=== PATIENT | female | born 1945 | race Caucasian/White ===

== ENCOUNTER → 2017-09-21 10:54 | Outpatient (POV) | payer MEDICARE, MEDICAID, SELFPAY | PROVIDERS: Visit Provider Nurse Practitioner Acute Care | DX: Z00.00 Encounter for general adult medical examination without abnormal findings (principal) ==

== ENCOUNTER → 2017-09-23 11:30 | Outpatient (CLI) | payer MEDICARE, MEDICAID, SELFPAY ==
[2017-09-25 20:19] LABS: Occult Blood,Stool Negative (Negative)
== END ==
PROVIDERS: Visit Provider Family Medicine
DX: Z12.11 Encounter for screening for malignant neoplasm of colon (principal)
CPT/HCPCS: 82272; G0328

== ENCOUNTER → 2017-09-24 11:30 | Outpatient (CLI) | payer MEDICARE, MEDICAID, SELFPAY ==
[2017-09-25 20:17] LABS: Occult Blood,Stool Positive (Negative)
== END ==
PROVIDERS: Visit Provider Family Medicine
DX: Z12.11 Encounter for screening for malignant neoplasm of colon (principal)
CPT/HCPCS: 82272; G0328

== ENCOUNTER → 2017-09-25 12:57 | Outpatient (CLI) | payer MEDICARE, MEDICAID, SELFPAY ==
[2017-09-25 20:18] LABS: Occult Blood,Stool Positive (Negative)
== END ==
PROVIDERS: Visit Provider Family Medicine
DX: Z12.11 Encounter for screening for malignant neoplasm of colon (principal)
CPT/HCPCS: 82272; G0328

== ENCOUNTER → 2018-03-22 09:11 | Outpatient (POV) | payer MEDICARE, MEDICAID, SELFPAY ==
[2018-03-22 10:29] LABS: Basophils % 0.6 % (0.1-2.0); Eosinophils # 0.4 K/mm3 (0.0-0.4); Eosinophils % 7.7 % (0.1-12.0); Hematocrit 32.2 % (37.0-47.0); Hemoglobin 10.4 g/dL (12.2-16.2); Lymphocytes # 1.3 K/mm3 (0.7-4.5); Lymphocytes % 25.4 K/mm3 (10-50); Mean Corpuscular HGB Conc 32.1 g/dL (31.8-35.4); Mean Corpuscular Hemoglobin 29.6 pg (27.0-31.2); Mean Corpuscular Volume 92.2 fl (81-99); Mean Platelet Volume 10.5 fl (7.4-10.4); Monocytes # 0.4 K/mm3 (0.1-1.0); Monocytes % 7.2 % (1.7-9.3); Neutrophils # 3.1 K/mm3 (1.8-7.8); Neutrophils % 59.1 % (37.0-80.0); Platelet Count 101 K/mm3 (142-424); Red Blood Count 3.49 M/mm3 (4.20-5.40); Red Cell Distribution Width 14.7 % (11.5-17.5); White Blood Count 5.3 K/mm3 (4.8-10.8)
[2018-03-22 10:34] LABS: Ammonia 59 umol/L (19-54); INR 1.04 (0.9-1.1); Prothrombin Time 10.7 seconds (9.4-11.8)
[2018-03-22 11:58] LABS: Alanine Aminotransferase 39 U/L (12-78); Albumin/Globulin Ratio 0.9 (1.1-1.8); Alkaline Phosphatase 123 U/L (46-116); Anion Gap 8.6 mEq/L (5-15); Aspartate Amino Transferase 45 U/L (15-37); Bilirubin,Total 0.6 mg/dL (0.2-1.0); Blood Urea Nitrogen 19 mg/dL (7-18); Calcium 9.6 mg/dL (8.5-10.1); Carbon Dioxide 30 mmol/L (21.0-32.0); Chloride 109 mmol/L (98-107); Creatinine,Serum 1.02 mg/dL (0.55-1.02); Estimated Glomerular Filt Rate 53 ml/min (>60); GFR (African American) 65 ML/MIN (>60); Globulin 3.4 gm/dl (1.3-3.2); Glucose 199 mg/dL (74-106); Potassium 5.6 mmoL/L (3.5-5.1); Sodium 142 mmol/L (136-145); Total Protein,Serum 6.4 gm/dL (6.4-8.2)
[2018-03-24 12:53] LABS: AFP, Tumor Marker 3.3 ng/mL (0.0-8.3)
== END ==
PROVIDERS: Visit Provider Nurse Practitioner Acute Care
DX: K74.60 Unspecified cirrhosis of liver (principal)
CPT/HCPCS: 36415; 80053; 82105; 82140; 85025; 85610

== ENCOUNTER → 2018-04-12 08:37 | Outpatient (CLI) | payer MEDICARE, MEDICAID, SELFPAY ==
--- NOTE | 2018-04-12 08:41 | US_ITS ---
US abdomen limited History:Follow-up cirrhosis Ordering Physician:Elvia Gallegos Patient Age: 72 years Comparison:06/29/2017 Findings: Pancreas:Unremarkable. No obvious mass or abnormal fluid collection. No ductal dilatation Liver:There is coarse echogenicity of the liver with irregularity of the liver surface consistent with cirrhosis. No focal liver lesion demonstrated. There is appropriate directional blood flow within the portal vein. The portal vein is not enlarged measuring 8 mm. Right Kidney:Unremarkable. Normal size and echogenicity. No hydronephrosis Gallbladder:Surgically absent Impression: The findings are consistent with cirrhosis. There is appropriate direction of blood flow within the portal vein which does not appear enlarged
== END ==
PROVIDERS: PCP Family Medicine; Visit Provider Nurse Practitioner Acute Care
DX: K74.60 Unspecified cirrhosis of liver (principal)
CPT/HCPCS: 76705

== ENCOUNTER → 2018-09-20 10:03 | Outpatient (POV) | payer MEDICARE, MEDICAID, SELFPAY ==
[2018-09-20 11:37] LABS: Basophils % 0.4 % (0.1-2.0); Eosinophils # 0.2 K/mm3 (0.0-0.4); Eosinophils % 3.6 % (0.1-12.0); Hematocrit 30.6 % (37.0-47.0); Hemoglobin 9.8 g/dL (12.2-16.2); Lymphocytes # 1.9 K/mm3 (0.7-4.5); Lymphocytes % 29.1 % (10-50); Mean Corpuscular HGB Conc 31.9 g/dL (31.8-35.4); Mean Corpuscular Hemoglobin 30.1 pg (27.0-31.2); Mean Corpuscular Volume 94.3 fl (81-99); Monocytes # 0.3 K/mm3 (0.1-1.0); Monocytes % 5.2 % (1.7-9.3); Neutrophils # 3.9 K/mm3 (1.8-7.8); Neutrophils % 61.7 % (37.0-80.0); Platelet Count 120 K/mm3 (142-424); Red Blood Count 3.25 M/mm3 (4.20-5.40); Red Cell Distribution Width 14.8 % (11.5-17.5); White Blood Count 6.4 K/mm3 (4.8-10.8)
[2018-09-20 11:44] LABS: Ammonia 90 umol/L (19-54)
[2018-09-20 12:04] LABS: Prothrombin Time 10.3 seconds (9.4-11.8)
[2018-09-20 12:47] LABS: Alanine Aminotransferase 37 U/L (12-78); Albumin/Globulin Ratio 0.9 (1.1-1.8); Alkaline Phosphatase 121 U/L (46-116); Anion Gap 17.9 mEq/L (5-15); Aspartate Amino Transferase 49 U/L (15-37); Bilirubin,Total 0.5 mg/dL (0.2-1.0); Blood Urea Nitrogen 43 mg/dL (7-18); Calcium 10.3 mg/dL (8.5-10.1); Carbon Dioxide 25 mmol/L (21.0-32.0); Chloride 107 mmol/L (98-107); Creatinine,Serum 1.25 mg/dL (0.55-1.02); Estimated Glomerular Filt Rate 42 ml/min (>60); Ferritin 22 ng/mL (8-388); GFR (African American) 51 ML/MIN (>60); Globulin 3.5 gm/dl (1.3-3.2); Glucose 124 mg/dL (74-106); Potassium 5.9 mmoL/L (3.5-5.1); Sodium 144 mmol/L (136-145); Total Protein,Serum 6.5 gm/dL (6.4-8.2)
[2018-09-21 05:12] LABS: Iron 55 ug/dL (27-139); UIBC 322 ug/dL (118-369)
[2018-09-21 09:44] LABS: AFP, Tumor Marker 4.7 ng/mL (0.0-8.3); Iron Saturation 15 % (15-55)
== END ==
PROVIDERS: Visit Provider Nurse Practitioner Acute Care
DX: K74.60 Unspecified cirrhosis of liver (principal)
CPT/HCPCS: 36415; 80053; 82105; 82140; 82728; 83540; 83550; 85025; 85610

== ENCOUNTER 2018-12-31 08:00 | Outpatient (CLI) | payer MEDICARE, MEDICAID, SELFPAY ==
[2018-12-31] VITALS (20 sets, daily range): BP systolic 128–176; BP diastolic 35–72; PULSE 58–73; RESP 18–20; TEMP 36.3–36.8; O2SAT 96–100; BMI 40.8
[2018-12-31 08:51] LABS: Hematocrit 29.8 % (37.0-47.0); Hemoglobin 9.2 g/dL (12.2-16.2)
[2018-12-31 16:54] LABS: Hematocrit 35.6 % (37.0-47.0)
== END 2018-12-31 16:50 | disposition home or self-care (01) ==
LOC: INF 08:10
PROVIDERS: Visit Provider Family Medicine
DX: D64.9 Anemia, unspecified (principal)
CPT/HCPCS: 36430; 85014; 85018; 86850; P9016

== ENCOUNTER → 2020-02-21 15:28 | Outpatient (POV) | payer MEDICARE, MEDICAID, SELFPAY | PROVIDERS: Visit Provider Dermatology | DX: Z00.00 Encounter for general adult medical examination without abnormal findings (principal) ==

== ENCOUNTER → 2020-04-19 13:04 | Outpatient (CLI) | payer MEDICARE, MEDICAID, SELFPAY ==
[2020-04-19 13:36] LABS: Ammonia 78 umol/L (9-30)
[2020-04-19 15:40] LABS: Chloride 106 mmol/L (98-107); Potassium 4.5 mmoL/L (3.5-5.1); Sodium 144 mmol/L (136-145)
[2020-04-19 15:42] LABS: Alanine Aminotransferase 27 U/L (12-78); Alkaline Phosphatase 132 U/L (38-126); Aspartate Amino Transferase 53 U/L (14-36); Bilirubin,Total 0.8 mg/dl (0.2-1.3); Blood Urea Nitrogen 30 mg/dl (7-17); Estimated Glomerular Filt Rate 49 ml/min (>60); GFR (African American) 59 ML/MIN (>60)
[2020-04-19 15:43] LABS: Albumin Level 3.6 g/dl (3.5-5.0); Albumin/Globulin Ratio 1.2 (1.1-1.8); Anion Gap 13.5 mEq/L (5-15); Calcium 9.9 mg/dl (8.4-10.2); Carbon Dioxide 29 mmol/L (22.0-30.0); Chol/HDL Ratio 1.7 (1-3.5); Cholesterol 95 mg/dl (140-200); Globulin 3.1 g/dL (1.3-3.2); Glucose 110 mg/dl (74-100); HDL Cholesterol 56 mg/dl (40-60); Iron 95 ug/dL (37-170); Total Protein,Serum 6.7 g/dl (6.3-8.2); Triglycerides 41 mg/dl (30-150); VLDL Cholesterol 8 mg/dL (0-40)
[2020-04-19 15:59] LABS: Direct LDL Cholesterol < 30.00 mg/dL (100-129)
[2020-04-19 16:03] LABS: T4 (Thyroxine) 9.8 ug/dl (5.53-11.0)
[2020-04-19 16:16] LABS: Thyroid Stimulating Hormone 3.83 uIU/mL (0.465-4.68)
== END ==
PROVIDERS: Visit Provider Family Medicine
DX: K74.60 Unspecified cirrhosis of liver (principal); E61.9 Deficiency of nutrient element, unspecified; E03.9 Hypothyroidism, unspecified; E11.9 Type 2 diabetes mellitus without complications; Z79.84 Long term (current) use of oral hypoglycemic drugs
CPT/HCPCS: 36415; 80053; 80061; 82140; 83540; 84436; 84443

== ENCOUNTER → 2020-06-18 13:33 | Outpatient (CLI) | payer MEDICARE, MEDICAID, SELFPAY ==
--- NOTE | 2020-06-18 13:42 | XR_ITS ---
PROCEDURE: XR CHEST PORTABLE CLINICAL HISTORY: COVID OUTPATIENT Shortness of breath COMPARISON: CR CXR CHEST(2 VIEWS-NOT PORTABLE) from 03/05/2015 CR CXR CHEST(2 VIEWS-NOT PORTABLE) from 03/07/2015 FINDINGS: The cardiomediastinal silhouette and pulmonary vascularity are within normal limits. The lungs are clear without infiltrates, suspicious nodules, or pleural effusions. Postsurgical changes right shoulder IMPRESSION: No acute findings. Dictated by: Roger Waters MD 06/18/2020 14:24 Roger Waters MD in [place] 06/18/2020 14:24
[2020-06-18 16:49] LABS: Basophils % 0.5 % (0.1-2.0); Eosinophils # 0.5 K/mm3 (0.0-0.4); Eosinophils % 6.9 % (0.1-12.0); Hematocrit 34.2 % (37.0-47.0); Hemoglobin 11.5 g/dL (12.2-16.2); Lymphocytes # 1.8 K/mm3 (0.7-4.5); Lymphocytes % 27.7 % (10-50); Mean Corpuscular HGB Conc 33.7 g/dL (31.8-35.4); Mean Corpuscular Hemoglobin 31.6 pg (27.0-31.2); Mean Corpuscular Volume 93.6 fl (81-99); Mean Platelet Volume 11.3 fl (7.4-10.4); Monocytes # 0.5 K/mm3 (0.1-1.0); Monocytes % 8.2 % (1.7-9.3); Neutrophils # 3.7 K/mm3 (1.8-7.8); Neutrophils % 56.7 % (37.0-80.0); Platelet Count 106 K/mm3 (142-424); Red Blood Count 3.65 M/mm3 (4.20-5.40); Red Cell Distribution Width 15.7 % (11.5-17.5); White Blood Count 6.5 K/mm3 (4.8-10.8)
[2020-06-20 13:42] LABS: Covid-19 Nasal PCR Sendout Lex Not Detected
== END ==
PROVIDERS: PCP Family Medicine; Visit Provider Nurse Practitioner
DX: Z03.818 Encounter for observation for suspected exposure to other biological agents ruled out (principal)
CPT/HCPCS: 36415; 71045; 85025; 87275; 87276; U0004

== ENCOUNTER → 2020-08-06 16:03 | Outpatient (CLI) | payer MEDICARE, MEDICAID, SELFPAY ==
[2020-08-08 11:13] LABS: Covid-19 Nasal PCR Sendout P&C Negative
== END ==
PROVIDERS: PCP Nurse Practitioner; Visit Provider Nurse Practitioner
DX: Z20.822 Contact with and (suspected) exposure to COVID-19 (principal)
CPT/HCPCS: U0004

== ENCOUNTER 2020-11-16 16:48 | Inpatient (IN) | payer MEDICARE, MEDICAID, SELFPAY ==
[2020-11-16] VITALS (10 sets, daily range): BP systolic 129–178; BP diastolic 54–110; PULSE 66–117; RESP 12–18; TEMP 35.8–37; O2SAT 97–100; BMI 30.1; BMI 38.5
--- NOTE | 2020-11-16 16:50 | HMH.EDGENADL ---
ED Disposition Clinical Impression: Hepatic encephalopathy Disposition: Admitted as Observation Condition on Discharge: Fair Referrals: Joesph Vila MD [Primary Care Provider] - - Critical Care Critical Care Time: No Attestation: On , the high probability of a clinically significant, sudden or life threatening deterioration of the following system(s) required my full and direct attention, intervention and personal management. The time I documented below is in addition to time spent performing reported procedures but includes the following listed in this critical care notation. Medical Decision Making - Peng Inquiry Pt receiving controlled substance: Yes Peng was queried for this patient: Yes Risks and benefits of using a controlled substance: were not discussed with pt by me Vital Signs: 11/16/20 16:48 11/16/20 17:05 Temperature 98.6 F Temperature Source Oral Pulse Rate 66 Pulse Rate [Right] 76 Respiratory Rate 16 16 Blood Pressure 148/54 H Blood Pressure [Right Arm] 178/69 H Blood Pressure Mean [Right Arm] 105 Blood Pressure Source [Right Arm] Automatic Cuff Blood Pressure Position [Right Arm] Sitting 02 Sat by Pulse Oximetry 99 100 Oxygen Delivery Method Room Air - Lab Data Lab Results 11/16/20 17:15: WBC 4.5 L, RBC 3.49 L, Hgb 10.6 L, Hct 31.7 L, MCV 90.9, MCH 30.4, MCHC 33.4, RDW 15.6, Plt Count 82 L, MPV 10.2, Neut % (Auto) 49.8, Lymph % (Auto) 37.0, [place] % (Auto) 6.3, Eos % (Auto) 6.2, Baso % (Auto) 0.6, Neut # (Auto) 2.2, Lymph # (Auto) 1.7, [place] # (Auto) 0.3, Eos # (Auto) 0.3, Baso # (Auto) 0.0 11/16/20 17:15: Sodium 140, Potassium 4.3, Chloride 108 H, Carbon Dioxide 24, Anion Gap 12.3, BUN 31 H, Creatinine 1.10 H, Estimated Creat Clear 58, Estimated GFR 49 L, Est GFR ( Amer) 59, Glucose 115 H, Calcium 10.0, Total Bilirubin 0.8, AST 54 H, ALT 31, Alkaline Phosphatase 142 H, Total Protein 6.7, Albumin 3.6, Globulin 3.1, Albumin/Globulin Ratio 1.2 11/16/20 17:15: Lactate 3.7 H 11/16/20 17:15: Ammonia 185 H 11/16/20 17:15: Plasma/Serum Alcohol < 10 11/16/20 17:20: Urine Color Yellow, Urine Appearance Clear, Urine pH 5.5, Ur Specific [place] 1.020, Urine Protein Negative, Urine Glucose (UA) Trace, Urine Ketones Negative, Urine Blood Negative, Urine Nitrate Negative, Urine Bilirubin Negative, Urine Urobilinogen 0.2, Ur Leukocyte Esterase Negative, Urine RBC None, Urine WBC None, Ur Squamous Epith Cells None, Urine Bacteria None 11/16/20 17:20: Urine Opiates Screen Negative, Urine Methadone Screen Negative, Ur Barbituates Screen Negative, Ur Phencyclidine Scrn Negative, Ur Amphetamines Screen Negative, U Benzodiazepines Scrn Negative, Urine Cocaine Screen Negative, U Marijuana (THC) Screen Negative 11/16/20 17:42: Specimen Source Left radial, ABG pH 7.43, ABG pCO2 31.7 L, ABG pO2 95.6, ABG HCO3 20.7 L, ABG Total CO2 21.7 L, ABG O2 Saturation 97, ABG Base Excess -3.6 L, Roger Test Acceptable Result diagrams: 11/16/20 17:15 11/16/20 17:15 Orders (Tests/Meds): ED MEDICATIONS Generic Name Dose Route Start Last Admin Trade Name Freq PRN Reason Stop Dose Admin Lactulose 20 gm 11/16/20 21:00 Lactulose 20gm/30ml Udc PO 12/16/20 20:59 QID FELICIANO Sodium Chloride 10 ml 11/16/20 19:13 Sodium Chloride 0.9% 10ml Vial IV 12/16/20 19:12 NEEDED PRN to Dilute Lorazepam inj Discontinued Medications Generic Name Dose Route Start Last Admin Trade Name Freq PRN Reason Stop Dose Admin Haloperidol Lactate 2 mg 11/16/20 17:25 11/16/20 17:31 Haloperidol Lactate 5 Mg/Ml Vial IM 11/16/20 17:26 2 mg ONCE ONE Administration Haloperidol Lactate 3 mg 11/16/20 18:14 11/16/20 18:15 Haloperidol Lactate 5 Mg/Ml Vial IM 11/16/20 18:15 3 mg ONCE ONE Administration Lorazepam 1 mg 11/16/20 19:13 11/16/20 19:14 Lorazepam 2mg/Ml Vial IV 11/16/20 19:14 1 mg ONCE ONE Administration Neomycin/Polymyxin/Bacitracin 1 each 11/16/20 20:28 Neospo
--- NOTE | 2020-11-16 16:56 | CT_ITS ---
PROCEDURE INFORMATION: Exam: CT Head Without Contrast Exam date and time: 11/16/2020 4:56 PM Age: 75 years old Clinical indication: Altered mental status/memory loss; Additional info: AMS TECHNIQUE: Imaging protocol: Computed tomography of the head without contrast. Radiation optimization: All CT scans at this facility use at least one of these dose optimization techniques: automated exposure control; mA and/or kV adjustment per patient size (includes targeted exams where dose is matched to clinical indication); or iterative reconstruction. COMPARISON: No relevant prior studies available. FINDINGS: Brain: Periventricular and subcortical white matter areas of hypoattenuation, likely chronic small vessel ischemic change, demyelination, or gliosis. No mass, hemorrhage, or acute infarction. Cerebral ventricles: No ventriculomegaly. Bones/joints: Normal. Paranasal sinuses: Visualized sinuses are unremarkable. No fluid levels. Mastoid air cells: Normal as visualized. Vasculature: Atherosclerotic vascular disease. Soft tissues: Unremarkable. IMPRESSION: No acute intracranial abnormality.
--- NOTE | 2020-11-16 16:58 | XR_ITS ---
PROCEDURE INFORMATION: Exam: XR Chest Exam date and time: 11/16/2020 4:58 PM Age: 75 years old Clinical indication: Other: AMS TECHNIQUE: Imaging protocol: XR of the chest. Views: 1 view. COMPARISON: CR XR CHEST PORTABLE 06/18/2020 2:25 PM FINDINGS: Tubes, catheters and devices: Changes of prior right proximal humerus fracture with partially threaded cannulated lag screw and washer fixation. Lungs: Normal. Pleural spaces: Unremarkable. No pleural effusion. No pneumothorax. Heart/Mediastinum: Normal. Bones/joints: Multilevel thoracolumbar spine degenerative disc space narrowing and osteophyte formation. Organs: Cholecystectomy clips within the upper abdomen. IMPRESSION: No acute cardiopulmonary abnormality.
--- NOTE | 2020-11-16 17:31 | PC.NURSE ---
son asks for help at this time. Pt trying to get out of bed and advises she wants to be left along. Tried to explain to pateint that we needed to run some tests to figure out what was going on. son tried to explain to her, pt still trying to get up. Notified MD and orders for 2mg of haldol IM given. Medication administered with no issues
[2020-11-16 17:34] LABS: Microscopic,Cath URINE MICROSCOPIC (MICROSCOPIC)
[2020-11-16 17:34] LABS: Basophils % 0.6 % (0.1-2.0); Eosinophils # 0.3 K/mm3 (0.0-0.4); Eosinophils % 6.2 % (0.1-12.0); Hematocrit 31.7 % (37.0-47.0); Hemoglobin 10.6 g/dL (12.2-16.2); Lymphocytes # 1.7 K/mm3 (0.7-4.5); Mean Corpuscular HGB Conc 33.4 g/dL (31.8-35.4); Mean Corpuscular Hemoglobin 30.4 pg (27.0-31.2); Mean Corpuscular Volume 90.9 fl (81-99); Mean Platelet Volume 10.2 fl (7.4-10.4); Monocytes # 0.3 K/mm3 (0.1-1.0); Monocytes % 6.3 % (1.7-9.3); Neutrophils # 2.2 K/mm3 (1.8-7.8); Neutrophils % 49.8 % (37.0-80.0); Platelet Count 82 K/mm3 (142-424); Red Blood Count 3.49 M/mm3 (4.20-5.40); Red Cell Distribution Width 15.6 % (11.5-17.5); White Blood Count 4.5 K/mm3 (4.8-10.8)
[2020-11-16 17:35] LABS: Appearance,Urine/Cath CLEAR (Clear); Bilirubin,Cath Negative (Negative); Blood, Urine/Cath Negative (Negative); Color,Urine/Cath YELLOW (Yellow); Glucose,Urine/Cath (UA) TRACE (Negative); Ketones,Urine/Cath Negative (Negative); Leukocyte Esterase,Cath Negative (Negative); Nitrate,Cath Negative (Negative); PH,Urine/Cath 5.5 (5.0-8.5); Protein,Urine/Cath Negative (Negative); Urobilinogen,Cath 0.2 EU/dl (0.2)
[2020-11-16 17:35] LABS: Ammonia 185 umol/L (9-30)
[2020-11-16 17:37] LABS: Ethyl Alcohol < 10 mg/dl (0-10); Lactic Acid 3.7 mmol/L (0.7-2.1)
[2020-11-16 17:45] LABS: ABG Base Excess -3.6 mmol/L (-2.4-2.3); ABG HCO3 20.7 mmhg (22.0-26.0); ABG Oxygen Saturation 97 % (90-100); ABG PCO2 31.7 mmhg (35.0-45.0); ABG PH 7.43 mmol/L (7.35-7.45); ABG PO2 95.6 mmhg (80-100); ABG TCO2 21.7 mmhg (23-27)
[2020-11-16 17:47] LABS: Amphetamine/Metha Screen,Urine Negative ng/ml (<1000); Barbiturates Screen,Urine Negative ng/ml (<200)
[2020-11-16 17:48] LABS: Benzodiazepines Screen,Urine Negative ng/ml (<200)
[2020-11-16 17:49] LABS: Cannabinoid Screen,Urine Negative ng/ml (<50); Cocaine Screen,Urine Negative ng/ml (<300)
[2020-11-16 17:50] LABS: Methadone Screen,Urine Negative ng/ml (<300)
[2020-11-16 17:51] LABS: Opiate Screen,Urine Negative ng/ml (<300); Phencyclidine Screen,Urine Negative ng/ml (<25)
[2020-11-16 17:52] LABS: Alanine Aminotransferase 31 U/L (12-78); Albumin Level 3.6 g/dl (3.5-5.0); Albumin/Globulin Ratio 1.2 (1.1-1.8); Alkaline Phosphatase 142 U/L (38-126); Anion Gap 12.3 mEq/L (5-15); Aspartate Amino Transferase 54 U/L (14-36); Bilirubin,Total 0.8 mg/dl (0.2-1.3); Blood Urea Nitrogen 31 mg/dl (7-17); Carbon Dioxide 24 mmol/L (22.0-30.0); Chloride 108 mmol/L (98-107); Creatinine Clearance Estimated 58 mL/min (50-200); Estimated Glomerular Filt Rate 49 ml/min (>60); GFR (African American) 59 ML/MIN (>60); Globulin 3.1 g/dL (1.3-3.2); Glucose 115 mg/dl (74-100); Potassium 4.3 mmoL/L (3.5-5.1); Sodium 140 mmol/L (136-145); Total Protein,Serum 6.7 g/dl (6.3-8.2)
--- NOTE | 2020-11-16 17:56 | PC.NURSE ---
pt gone to radiology
[2020-11-16 17:57] LABS: Allen's Test Acceptable; Source Left Radial
--- NOTE | 2020-11-16 18:11 | PC.NURSE ---
pt thrashing about in CT they are unable to finish scan, advised to bring pt back, pt medicated per mar
--- NOTE | 2020-11-16 20:24 | PC.NURSE ---
paged dr gonzales
--- NOTE | 2020-11-16 20:34 | PC.NURSE ---
Notified House of need for bed assignment at this time
[2020-11-16 21:22] LABS: Reflex Lactic Add Lactic Reflex
--- NOTE | 2020-11-16 21:39 | PC.NURSE ---
repeat lactic same as first. no new orders at this time.
[2020-11-16 22:03] LABS: Lactic Acid Follow Up (RFLX 1) 3.7 mmol/L (0.7-2.1)
--- NOTE | 2020-11-16 22:17 | PC.NURSE ---
called to attempt to give report, spoke with missael gerard who stated she didn't have any idea she was getting the patient and she needed at least 5 minutes before she could take report . agreed.
--- NOTE | 2020-11-16 23:00 | PC.NURSE ---
PT ARRIVED TO FLOOR VIA STRETCHER FROM ED W/STAFF AT [id number]
[2020-11-16 23:42] LABS: Reflex Lactic (2 hrs) Add Lactic Reflex
[2020-11-17 00:13] LABS: Lactic Acid Follow up (RFLX 2) 4.5 mmol/L (0.7-2.1)
[2020-11-17 00:18] LABS: POC Glucose,Bedside 125 (70-110)
[2020-11-17 00:28] VITALS: TEMP 35.3
--- NOTE | 2020-11-17 00:30 | PC.NURSE ---
Called Dr. Dumont to discuss patient's condition stating that Lactic Acid was 4.5 up from the ED previous 2 of 3.7. WBC 4.5. Patient has good urine output greater than 700. Patient has maintenance fluids going at 50 mls per hour. Patient is no communicative, daughter at bedside. No new orders given. Will continue to monitor.
[2020-11-17 01:28] VITALS: TEMP 36.7
--- NOTE | 2020-11-17 02:00 | PC.NURSE ---
Rechecked patient's temp 99.6 F Axillary, REmoved Lilian hector. Will continue to monitor.
[2020-11-17 04:00] VITALS: BP 120/56; PULSE 98; RESP 16; TEMP 36.9; O2SAT 97
[2020-11-17 07:23] LABS: Ammonia 115 umol/L (9-30)
[2020-11-17 08:00] VITALS: BP 156/59; PULSE 94; RESP 19; TEMP 36.4; O2SAT 99
[2020-11-17 11:18] LABS: POC Glucose,Bedside 104 (70-110)
--- NOTE | 2020-11-17 11:40 | HMH.HP ---
*Admission Date: 11/16/20 *Chief complaint: Altered mental status *History of present illness: Ms. Pineda is a 75-year-old white female with a history of nonalcoholic cirrhosis, type 2 diabetes mellitus, hypertension, and ASCVD. She was brought to emergency room yesterday because of sudden onset of confusion and agitation. Family reports that she has had some intermittent episodes over the past several weeks but yesterday was the most severe. She was work-up in the emergency room and found to have an elevated ammonia level of 185. Lactate was elevated. No obvious source of infection. White count was normal. Head CT was unremarkable. She has been admitted at this time for further evaluation and treatment. She was restless through the night. She is more calm this morning. Her son is in the room and states that she recognized him and has been more coherent. [facility] History Medical History: Reports:: Atherosclerotic Heart Disease, Diabetes Mellitus Type 2, Hypertension, Lung Disease (ASTHMA) Denies:: Diabetes Mellitus Type 1, Internal Pacemaker, Seizures *Have you ever received a pneumonia vaccine?: Yes *Have you received a flu vaccine this season?: No Other Medical History: Reports: Anemia (Chronic), Liver Disease (Nonalcoholic cirrhosis) Other Surgeries: Yes: Cholecystectomy, Coronary Stent (2000), Hysterectomy-Total, Other (Tonsillectomy, full mouth extraction). No: Pacemaker Fractures: Yes - *Social History Last grade of school completed: High school graduate Smoking Status: Never smoker Alcohol Intake: never *Occupational Status:: retired Housing: house Household Members: children *Travel in the last 8 weeks: None Family Hx:: Cancer, Heart Attack Review of Systems - Review of Systems Review of systems:: unable to obtain Meds Home Medications Medication Instructions Recorded Confirmed Type Aspirin [Aspirin 325mg Tab] 325 mg PO DAILY 09/24/18 11/17/20 History Dulaglutide [Trulicity] 1.5 mg SQ DAILY 09/24/18 11/17/20 History Furosemide [Furosemide 40MG tAB*] 40 mg PO DAILY 09/24/18 11/17/20 History Glimepiride 4 mg PO DAILY 09/24/18 11/17/20 History Insulin Glargine,Hum.rec.anlog 80 mg SQ BID 09/24/18 11/16/20 History [Toujeo Solostar] Metformin HCl 500 mg PO BID 09/24/18 11/16/20 History Methylcellulose (with Sugar) 850 gm PO DAILY 09/24/18 11/17/20 History [Citrucel Powder] Metoprolol Tartrate 50 mg PO DAILY 09/24/18 11/17/20 History Valsartan/Hydrochlorothiazide 1 tab PO DAILY 09/24/18 11/17/20 History [Valsartan-Hctz 80-12.5 mg Tab] polyethylene glycoL 3350 [Miralax 17 gm PO DAILY 09/24/18 11/17/20 History 17gm Packet] Lactulose [Lactulose 20gm/30ml 10 - 20 gm PO BID 11/17/20 11/17/20 History Oral Soln] Spironolactone [Aldactone 25mg 25 mg PO Q48H 11/17/20 11/17/20 History Tab] Tramadol HCl [Tramadol 50mg 50 mg PO TIDP PRN 11/17/20 11/17/20 History Tab] clonazePAM [Clonazepam] 0.5 mg PO TIDP PRN 11/17/20 11/17/20 History Allergies Allergy/AdvReac Type Severity Reaction Status Date / Time amoxicillin [From AUGMENTIN] Allergy Intermediate I-RASH Verified 11/16/20 16:59 clarithromycin [From BIAXIN] Allergy Intermediate NA-NAUSEA/V Verified 11/16/20 16:59 OMITING clavulanic acid Allergy Intermediate I-RASH Verified 11/16/20 16:59 [From AUGMENTIN] simvastatin Allergy Unknown Verified 11/16/20 16:59 Exam Vital signs and Labs for Last 24 Hours: Temp Pulse Resp BP Pulse Ox 97.6 F 94 H 19 156/59 H 99 11/17/20 08:00 11/17/20 08:00 11/17/20 08:00 11/17/20 08:00 11/17/20 08:00 Laboratory Results - last 24 hr 11/16/20 17:15: WBC 4.5 L, RBC 3.49 L, Hgb 10.6 L, Hct 31.7 L, MCV 90.9, MCH 30.4, MCHC 33.4, RDW 15.6, Plt Count 82 L, MPV 10.2, Neut % (Auto) 49.8, Lymph % (Auto) 37.0, [place] % (Auto) 6.3, Eos % (Auto) 6.2, Baso % (Auto) 0.6, Neut # (Auto) 2.2, Lymph # (Auto) 1.7, [place] # (Auto) 0.3, Eos # (Auto) 0.3, Baso # (Auto) 0.0 11/16/20 17:15: Sodium
--- NOTE | 2020-11-17 15:12 | P.CONPHA_ITS ---
[facility] Pharmacy VTE Monitoring - Patient Demographics Admission date: 11/17/20 Report Date: 11/17/20 Time: 15:12 Allergies/Adverse Reactions: Patient Allergies amoxicillin [From AUGMENTIN] Allergy (Intermediate, Verified 11/16/20 16:59) I-RASH clarithromycin [From BIAXIN] Allergy (Intermediate, Verified 11/16/20 16:59) NA-NAUSEA/VOMITING clavulanic acid [From AUGMENTIN] Allergy (Intermediate, Verified 11/16/20 16:59) I-RASH simvastatin Allergy (Unknown, Verified 11/16/20 16:59) Height: 1.52 m Weight: 89.414 kg Patient Problems: Current Active Problems Hepatic encephalopathy (Acute) Non-alcoholic cirrhosis (Acute) Type 2 diabetes mellitus (Acute) Hypertension (Acute) History of ASCVD (Acute) Osteoarthritis (Acute) - VTE Risk Labs: VTE Related Lab Results Hgb 10.6 g/dL (12.2-16.2) L 11/16/20 17:15 Hct 31.7 % (37.0-47.0) L 11/16/20 17:15 Plt Count 82 K/mm3 (142-424) L 11/16/20 17:15 BUN 31 mg/dl (7-17) H 11/16/20 17:15 Creatinine 1.10 mg/dl (0.52-1.04) H 11/16/20 17:15 Estimated Creat Clear 58 mL/min (50-200) 11/16/20 17:15 Was VTE Risk Assessment Performed: Yes VTE Score: 2 VTE Risk Level: Very Low Risk - Prophylaxis Types of VTE Prophylaxis: TEDS Knee High (RAJESH HOSE ORDERED) Location of Applied Device: Refused
[2020-11-17 16:00] VITALS: BP 164/65; PULSE 88; RESP 19; TEMP 36.4; O2SAT 97
[2020-11-17 16:55] LABS: POC Glucose,Bedside 107 (70-110)
--- NOTE | 2020-11-17 17:07 | PC.NURSE ---
Pt has been pleasant and cooperative this shift. Alert to person only. Pt has slept the majority of the shift, but will awaken with stimuli. No complaints of pain. Pt is on room air with sats. >90%. Lungs CTA. No edema noted. Abdomen is large, round, and non-tender. Quarter-sized abrasion noted to the RT abdi. F/C is patent and draining clear, yellow urine at bedside to gravity. Pt ambulates to/from the bathroom with stand-by assistance. 1 large, soft, brown stool today. FSBS results have been 104 and 107, neither of which have required insulin coverage per sliding scale. 20 G peripheral IV in the LT AC is patent and infusing NS @ 50 ML/HR. VSS. Call light within reach. Will continue to monitor.
[2020-11-17 20:00] VITALS: BP 149/51; PULSE 65; RESP 20; TEMP 36.7; O2SAT 99
[2020-11-17 22:23] LABS: POC Glucose,Bedside 253 (70-110)
[2020-11-18 03:48] VITALS: BP 141/48; PULSE 92; RESP 20; TEMP 36.7; O2SAT 97
[2020-11-18 05:00] VITALS: BMI 38.7
--- NOTE | 2020-11-18 05:11 | PC.NURSE ---
pt stated a headache and md was notified and new prn order received. iv patent and infusing per order. delgado draining divina urine with sediment and some hematuria noted. pt has become more awake and sat up eating crackers. vss. call light in reach. family at bedside. will continue to monitor
[2020-11-18 06:29] LABS: POC Glucose,Bedside 377 (70-110)
[2020-11-18 06:32] LABS: Basophils % 0.5 % (0.1-2.0); Eosinophils # 0.2 K/mm3 (0.0-0.4); Hemoglobin 9.8 g/dL (12.2-16.2); Lymphocytes # 1.3 K/mm3 (0.7-4.5); Mean Corpuscular HGB Conc 32.6 g/dL (31.8-35.4); Mean Corpuscular Hemoglobin 30.1 pg (27.0-31.2); Mean Corpuscular Volume 92.4 fl (81-99); Mean Platelet Volume 10.7 fl (7.4-10.4); Monocytes # 0.5 K/mm3 (0.1-1.0); Monocytes % 8.2 % (1.7-9.3); Neutrophils # 3.5 K/mm3 (1.8-7.8); Neutrophils % 64.4 % (37.0-80.0); Platelet Count 93 K/mm3 (142-424); Red Blood Count 3.24 M/mm3 (4.20-5.40); Red Cell Distribution Width 15.9 % (11.5-17.5); White Blood Count 5.4 K/mm3 (4.8-10.8)
[2020-11-18 06:40] LABS: Alanine Aminotransferase 30 U/L (12-78); Albumin Level 3.1 g/dl (3.5-5.0); Alkaline Phosphatase 92 U/L (38-126); Anion Gap 8.5 mEq/L (5-15); Aspartate Amino Transferase 66 U/L (14-36); Bilirubin,Total 1.5 mg/dl (0.2-1.3); Blood Urea Nitrogen 26 mg/dl (7-17); Calcium 9.4 mg/dl (8.4-10.2); Carbon Dioxide 26 mmol/L (22.0-30.0); Chloride 110 mmol/L (98-107); Creatinine Clearance Estimated 63 mL/min (50-200); Estimated Glomerular Filt Rate 49 ml/min (>60); GFR (African American) 59 ML/MIN (>60); Globulin 3.1 g/dL (1.3-3.2); Glucose 364 mg/dl (74-100); Potassium 4.5 mmoL/L (3.5-5.1); Sodium 140 mmol/L (136-145); Total Protein,Serum 6.2 g/dl (6.3-8.2)
[2020-11-18 06:50] LABS: Ammonia 57 umol/L (9-30)
[2020-11-18 07:11] LABS: Thyroid Stimulating Hormone 2.25 uIU/mL (0.465-4.68)
[2020-11-18 07:24] VITALS: PULSE 102; RESP 16; O2SAT 100
[2020-11-18 08:00] VITALS: BP 150/54; PULSE 102; RESP 16; TEMP 36.6; O2SAT 100
--- NOTE | 2020-11-18 08:17 | HMH.ACPN2 ---
Internal Medicine - PN: Subj *Date: 11/18/20 *Time: 08:17 Interval history: Did not rest well last night but she is much more alert and oriented this morning. She is sitting on the side of the bed eating her breakfast. Daughter is at the bedside. She has no memory of the events of yesterday. Bowels are moving. Exam Vital signs and Labs for Last 24 Hours: Temp Pulse Resp BP Pulse Ox 98.1 F 92 H 20 141/48 H 97 11/18/20 03:48 11/18/20 03:48 11/18/20 03:48 11/18/20 03:48 11/18/20 03:48 Laboratory Results - last 24 hr 11/17/20 11:08: POC Glucose 104 11/17/20 16:37: POC Glucose 107 11/17/20 22:01: POC Glucose 253 H 11/18/20 06:12: POC Glucose 377 H* 11/18/20 06:19: WBC 5.4, RBC 3.24 L, Hgb 9.8 L, Hct 30.0 L, MCV 92.4, MCH 30.1, MCHC 32.6, RDW 15.9, Plt Count 93 L, MPV 10.7 H, Neut % (Auto) 64.4, Lymph % (Auto) 24.0, [place] % (Auto) 8.2, Eos % (Auto) 3.0, Baso % (Auto) 0.5, Neut # (Auto) 3.5, Lymph # (Auto) 1.3, [place] # (Auto) 0.5, Eos # (Auto) 0.2, Baso # (Auto) 0.0 11/18/20 06:19: Sodium 140, Potassium 4.5, Chloride 110 H, Carbon Dioxide 26, Anion Gap 8.5, BUN 26 H, Creatinine 1.10 H, Estimated Creat Clear 63, Estimated GFR 49 L, Est GFR ( Amer) 59, Glucose 364 H, Calcium 9.4, Total Bilirubin 1.5 H, AST 66 H, ALT 30, Alkaline Phosphatase 92, Total Protein 6.2 L, Albumin 3.1 L, Globulin 3.1, Albumin/Globulin Ratio 1.0 L, TSH 2.25 11/18/20 06:19: Ammonia 57 H I & O for Last 24 hours: Intake & Output 11/15/20 11/16/20 11/17/20 11/18/20 11:59 11:59 11:59 11:59 Intake Total 312 / 312 895 / 895 Output Total 950 / 950 0 / 0 Balance -638 / -638 895 / 895 Weight 197 lb 2 oz 197 lb 1.986 oz Narrative: Alert and oriented. Color is normal. She appears in no distress. Chest with coarse breath sounds. No rales or wheezes. Heart is regular. Abdomen obese, soft, nondistended and nontender. Lower extremities show no edema. There is a superficial abrasion over the right distal anterior thigh. (Daughter states this occurred while she is being loaded in the ambulance in route to the hospital; she was combative). [place] is draining tea colored urine Assessment and Plan (1) Hepatic encephalopathy Status: Acute Category: Medical Code(s): K72.90 - Hepatic failure, unspecified without coma (2) Non-alcoholic cirrhosis Status: Acute Category: Medical Code(s): K74.60 - Unspecified cirrhosis of liver (3) Type 2 diabetes mellitus Status: Acute Category: Medical Code(s): E11.9 - Type 2 diabetes mellitus without complications (4) Hypertension Status: Acute Category: Medical Code(s): I10 - Essential (primary) hypertension (5) History of ASCVD Status: Acute Category: Medical Code(s): Z86.79 - Personal history of other diseases of the circulatory system (6) Osteoarthritis Status: Acute Category: Medical Code(s): M19.90 - Unspecified osteoarthritis, unspecified site - Assessment and plan all Dx Assessment and Plan for all problems:: Ammonia level has improved and is now down to 57. Bilirubin has increased slightly to 1.5. Renal function is stable. Continue IV fluids and lactulose. Plan for abdominal ultrasound tomorrow and GI consult.
[2020-11-18 11:46] LABS: Microscopic,Cath URINE MICROSCOPIC (MICROSCOPIC); POC Glucose,Bedside 578 (70-110)
[2020-11-18 11:51] LABS: Appearance,Urine/Cath SL CLOUDY (Clear); Bilirubin,Cath Negative (Negative); Blood, Urine/Cath 3+ (Negative); Color,Urine/Cath DK YELLOW (Yellow); Glucose,Urine/Cath (UA) 2+ (Negative); Ketones,Urine/Cath Negative (Negative); Leukocyte Esterase,Cath TRACE (Negative); Nitrate,Cath POSITIVE (Negative); PH,Urine/Cath 5.5 (5.0-8.5); Protein,Urine/Cath 2+ (Negative); Specific Gravity, Urine/Cath 1.025 (1.005-1.030)
[2020-11-18 12:02] LABS: RBC,Urine/Cath 20-50 # /hpf (0-3)
[2020-11-18 12:07] LABS: Glucose,Random 555 mg/dL (74-100)
[2020-11-18 15:56] LABS: POC Glucose,Bedside 467 (70-110)
[2020-11-18 15:57] VITALS: BP 146/62; PULSE 98; RESP 18; TEMP 36.7; O2SAT 100
--- NOTE | 2020-11-18 16:44 | PC.NURSE ---
Pt has been pleasant and cooperative this shift. A&O X4. No complaints of pain or SOA. Pt is on room air with sats. >90%. Lungs CTA. No edema noted. Abdomen is large, round, soft, and non-tender. Quarter-sized abrasion noted to the RT abdi. F/C is patent and draining dark, brown urine at bedside to gravity. Pt ambulates to/from the bathroom and throughout the room with stand-by assistance. Pt has also sat up in the recliner for several hours today. 2 large, loose, brown stools this shift. FSBS result @ 1130 was 578. Stat blood glucose ordered per protocol and result was 555. Received orders per Dr. Dumont (On-Call for Dr. Cali) to give 30 units of Humalog Insulin X1 and 20 units of Lantus Insulin X1. FSBS result @ 1530 was 467. Received orders per Dr. Dumont to give 30 units of Humalog Insulin X1 and 30 units of Lantus Insulin X1. Pt states that she will talk to Dr. Cali in the AM about ordering her home dose of Toujeo insulin and also about removing her delgado catheter. A reminder has been written on the white board per pt request and information will also be passed along in report to the following shift. 20 G peripheral IV in the LT AC is patent and infusing NS @ 50 ML/HR. VSS. Call light within reach. Will continue to monitor.
[2020-11-18 19:50] VITALS: BP 148/61; PULSE 78; RESP 18; TEMP 36.8; O2SAT 97
[2020-11-18 20:45] LABS: POC Glucose,Bedside 488 (70-110)
[2020-11-19 04:00] VITALS: BP 123/47; PULSE 73; RESP 18; TEMP 36.6; O2SAT 98
--- NOTE | 2020-11-19 04:00 | PC.NURSE ---
late entry: pt right abdi has redness, tender to touch, and warm. site was cleaned and new order for ointment was ordered. alert and oriented. iv patent and infusing. vss. delgado patent. call light in reach. will continue to monitor.
[2020-11-19 05:00] VITALS: BMI 38.7
[2020-11-19 06:02] LABS: POC Glucose,Bedside 244 (70-110)
[2020-11-19 06:20] LABS: Basophils % 0.3 % (0.1-2.0); Eosinophils # 0.2 K/mm3 (0.0-0.4); Hematocrit 27.5 % (37.0-47.0); Hemoglobin 9.3 g/dL (12.2-16.2); Lymphocytes # 1.7 K/mm3 (0.7-4.5); Lymphocytes % 27.8 % (10-50); Mean Corpuscular HGB Conc 33.7 g/dL (31.8-35.4); Mean Corpuscular Hemoglobin 30.6 pg (27.0-31.2); Mean Corpuscular Volume 90.9 fl (81-99); Mean Platelet Volume 11.4 fl (7.4-10.4); Monocytes # 0.5 K/mm3 (0.1-1.0); Monocytes % 7.7 % (1.7-9.3); Neutrophils # 3.6 K/mm3 (1.8-7.8); Neutrophils % 60.2 % (37.0-80.0); Platelet Count 82 K/mm3 (142-424); Red Blood Count 3.03 M/mm3 (4.20-5.40); Red Cell Distribution Width 15.8 % (11.5-17.5)
[2020-11-19 06:30] LABS: Ammonia 18 umol/L (9-30)
[2020-11-19 06:34] LABS: Alanine Aminotransferase 27 U/L (12-78); Alkaline Phosphatase 131 U/L (38-126); Anion Gap 9.1 mEq/L (5-15); Aspartate Amino Transferase 55 U/L (14-36); Bilirubin,Total 1.2 mg/dl (0.2-1.3); Blood Urea Nitrogen 23 mg/dl (7-17); Calcium 8.9 mg/dl (8.4-10.2); Carbon Dioxide 24 mmol/L (22.0-30.0); Chloride 110 mmol/L (98-107); Creatinine Clearance Estimated 54 mL/min (50-200); Estimated Glomerular Filt Rate 40 ml/min (>60); GFR (African American) 48 ML/MIN (>60); Globulin 2.9 g/dL (1.3-3.2); Glucose 232 mg/dl (74-100); Potassium 4.1 mmoL/L (3.5-5.1); Sodium 139 mmol/L (136-145); Total Protein,Serum 5.9 g/dl (6.3-8.2)
[2020-11-19 08:00] VITALS: BP 134/45; PULSE 72; RESP 18; TEMP 36.6; O2SAT 97
--- NOTE | 2020-11-19 08:20 | US_ITS ---
PROCEDURE: US ABDOMEN COMPLETE CLINICAL INDICATION: non-alcoholic cirrhosis; hepatic encephalopathy COMPARISON: US [facility] US abdomen limited from 09/27/2018 FINDINGS: PANCREAS: Visualized pancreas is unremarkable. LIVER: Heterogeneous echogenicity of the liver with minor surface irregularity, suggestive of cirrhosis. No intra or extrahepatic biliary dilation. The portal vein is patent. RIGHT KIDNEY: Normal size. No hydronephrosis. Mild cortical thinning is noted. LEFT KIDNEY: Normal size. No hydronephrosis. Mild cortical thinning. GALLBLADDER: Surgically absent AORTA: No evidence of aneurysm. SPLEEN: Unremarkable. Normal size and echogenicity ASCITES: None demonstrated. IMPRESSION: Findings are consistent with cirrhosis of the liver. Hyperechogenicity of the kidneys bilaterally, suggestive of medical renal disease. Dictated by: Nathaly Del Valle 11/19/2020 11:23 Nathaly Del Valle in [place] 11/19/2020 11:23
--- NOTE | 2020-11-19 08:37 | HMH.ACPN2 ---
<Nessa Hernandez - Last Filed: 11/19/20 08:40> Internal Medicine - PN: Subj *Date: 11/19/20 *Time: 08:40 Interval history: Patient states she is doing well this morning. She did not sleep well. Boycxbrq-io-yxc is at bedside. She is n.p.o. for GI consult this morning. She continues with [place] catheter which she would like to have out. She is not been out of bed as yet. She denies chest pain and shortness of breath. Laboratory data this morning show hemoglobin of 9.3 and hematocrit of 27.5. White blood cell count is 6000. Electrolytes show sodium 139 potassium of 4.1. BUN is 23 creatinine of 1.3. Is normal at 18 down from 57 yesterday AST slightly elevated at 55 with a normal ALT of 27. Alkaline phosphatase slightly elevated at 131. Blood culture show no growth at 48 hours. Exam Vital signs and Labs for Last 24 Hours: Temp Pulse Resp BP Pulse Ox 97.9 F 72 18 134/45 L 97 11/19/20 08:00 11/19/20 08:00 11/19/20 08:00 11/19/20 08:00 11/19/20 08:00 Laboratory Results - last 24 hr 11/18/20 11:30: Urine Color Dk yellow, Urine Appearance Sl cloudy, Urine pH 5.5, Ur Specific [place] 1.025, Urine Protein 2+, Urine Glucose (UA) 2+, Urine Ketones Negative, Urine Blood 3+, Urine Nitrate Positive, Urine Bilirubin Negative, Urine Urobilinogen 1.0, Ur Leukocyte Esterase Trace, Urine RBC 20-50, Urine WBC 3-5, Ur Squamous Epith Cells 3-5, Urine Bacteria None 11/18/20 11:30: POC Glucose 578 H* 11/18/20 11:48: Random Glucose 555 H* 11/18/20 15:46: POC Glucose 467 H* 11/18/20 20:34: POC Glucose 488 H* 11/19/20 05:54: POC Glucose 244 H 11/19/20 06:10: WBC 6.0, RBC 3.03 L, Hgb 9.3 L, Hct 27.5 L, MCV 90.9, MCH 30.6, MCHC 33.7, RDW 15.8, Plt Count 82 L, MPV 11.4 H, Neut % (Auto) 60.2, Lymph % (Auto) 27.8, [place] % (Auto) 7.7, Eos % (Auto) 4.0, Baso % (Auto) 0.3, Neut # (Auto) 3.6, Lymph # (Auto) 1.7, [place] # (Auto) 0.5, Eos # (Auto) 0.2, Baso # (Auto) 0.0 11/19/20 06:10: Sodium 139, Potassium 4.1, Chloride 110 H, Carbon Dioxide 24, Anion Gap 9.1, BUN 23 H, Creatinine 1.30 H, Estimated Creat Clear 54, Estimated GFR 40 L, Est GFR ( Amer) 48 L, Glucose 232 H D, Calcium 8.9, Total Bilirubin 1.2, AST 55 H, ALT 27, Alkaline Phosphatase 131 H, Total Protein 5.9 L, Albumin 3.0 L, Globulin 2.9, Albumin/Globulin Ratio 1.0 L 11/19/20 06:10: Ammonia 18 I & O for Last 24 hours: Intake & Output 11/16/20 11/17/20 11/18/20 11/19/20 11:59 11:59 11:59 11:59 Intake Total 312 / 312 1255 / 1255 2419 / 2419 Output Total 950 / 950 0 / 0 2577 / 2577 Balance -638 / -638 1255 / 1255 -158 / -158 Weight 197 lb 2 oz 197 lb 1.986 oz 197 lb 1 oz Microbiology Reports for the Last 24 Hours: Microbiology 11/16/20 17:15 Blood Blood Culture - Preliminary NO GROWTH AFTER 48 HOURS 11/16/20 17:15 Blood Blood Culture - Preliminary NO GROWTH AFTER 48 HOURS - Constitutional no acute distress Comments: Sitting up in the bed talking with her jsrknamy-oi-bee. Appears comfortable. - *Routine Respiratory Exam Present: CTA bilaterally (Anteriorly and posteriorly) - *Routine Cardiovascular Exam Present: RRR - *Routine Abdominal Exam Present: soft, normoactive bowel sounds. Absent: tenderness - *Routine Extremities Exam Absent: edema, calf tenderness - *Routine Skin Exam Present: wounds (1 cm right anterior abdi with surrounding erythema.) - *Routine Neurological Exam Present: alert, oriented X3 (Called me by name) Assessment and Plan (1) Hepatic encephalopathy Status: Acute Category: Medical Code(s): K72.90 - Hepatic failure, unspecified without coma (2) Non-alcoholic cirrhosis Status: Acute Category: Medical Code(s): K74.60 - Unspecified cirrhosis of liver (3) Type 2 diabetes mellitus Status: Acute Category: Medical Code(s): E11.9 - Type 2 diabetes mellitus without complications (4) Hypertension Status: Acute Category: Medical Code(s): I1
--- NOTE | 2020-11-19 11:08 | HMH.CONS ---
*Admission Date: 11/17/20 *Reason for consult:: cirrhosis/hepatic encephalopathy *History of present illness: This is a 75-year-old female who is known to our office with a history of Barron cirrhosis. She was last seen in 2019 to monitor her cirrhosis and at the time was on lactulose once a day and Lasix. She had undergone EGD with Dr. Chase 09/2018 who found esophageal varices and evidence of portal hypertension. She has been lost to follow-up since then. She reports that she her PCP had increased her lactulose to twice a day at that point. She recently came to the ER with acute confusion. She reports that she has had several episodes of acute confusion over the past 6 months. She always felt that this was blood glucose related as she is a diabetic. Upon arrival to the ER, her ammonia level was 185. Her H&H has been low as well at 9.3/27.5 this morning. She also has thrombocytopenia at 82 this morning. Back in 2019 at her last office visit her meld score was equal to 9. The patient reports that she usually takes her daily lactulose but sometimes forgets her second dose and sometimes she is not sure if she takes either of them. She denies any current confusion but she does note that at 1 point she got lost in her own bedroom. She reports that she sometimes has loose stools with the lactulose and sometimes she has some constipation. She denies any dark tarry stools, alcohol use or any NSAID use. She denies any nausea, vomiting, fever, abdominal pain, melena or hematochezia. She denies any jaundice or yellowing of the skin. Ultrasound today shows only cirrhosis. [facility] History Medical History: Reports:: Atherosclerotic Heart Disease, Diabetes Mellitus Type 2, Hypertension, Lung Disease (ASTHMA) Denies:: Diabetes Mellitus Type 1, Internal Pacemaker, Seizures *Have you ever received a pneumonia vaccine?: Yes *Have you received a flu vaccine this season?: No Other Medical History: Reports: Anemia (Chronic), Liver Disease (Nonalcoholic cirrhosis) Other Surgeries: Yes: Cholecystectomy, Coronary Stent (2000), Hysterectomy-Total, Other (Tonsillectomy, full mouth extraction). No: Pacemaker Fractures: Yes - *Social History Last grade of school completed: High school graduate Smoking Status: Never smoker Alcohol Intake: never *Occupational Status:: retired Housing: house Household Members: children *Travel in the last 8 weeks: None Family Hx:: Cancer, Heart Attack Review of Systems - Constitutional Denies anorexia, Denies body ache(s), Denies fatigue, Denies fever(s) - Eyes Denies blurry vision, Denies discharge - ENT Denies abnormal hearing, Denies dry mouth, Denies difficulty swallowing, Denies pain with swallowing - *Cardiovascular Reports leg swelling, Denies chest pain at rest, Denies shortness of breath - *Respiratory Denies chest congestion, Denies cough, Denies shortness of breath, Denies wheezing - *Gastrointestinal Denies abdominal pain, Denies bloating, Denies change in bowel habits, Denies difficulty swallowing, Denies nausea, Denies vomiting - *Musculoskeletal Denies joint pain, Denies muscle weakness - Integumentary/Breasts Reports lesions, Denies dry skin, Denies yellowing of the skin, Denies itching, Denies rash - *Neurologic Reports behavioral changes, Reports confusion, Reports memory loss, Denies unsteadiness, Denies dizziness, Denies numbness, Denies tingling - Psychiatric Denies anxiety, Denies depression - Endocrine Denies cold intolerance, Denies excessive sweating Meds Home Medications Medication Instructions Recorded Confirmed Type Aspirin [Aspirin 325mg Tab] 325 mg PO DAILY 09/24/18 11/17/20 History Dulaglutide [Trulicity] 1.5 mg SQ WEEKLY 09/24/18 11/18/20 History Furosemide [Furosemide 40MG tAB*] 40 mg PO DAILYP PRN 09/24/18 11/17/20 History Glimepiride 4 mg PO DAILY 09/24/18 11/17/20 History Insulin Glargine,Hum.rec.anlog 65 units SQ BID 09/24/18 11/18/20 History [Steven Leung]
[2020-11-19 12:11] LABS: INR 1.06 (0.9-1.1); Prothrombin Time 12.4 seconds (10.1-12.5)
--- NOTE | 2020-11-19 12:44 | PC.NURSE ---
PT IS RESTING IN BED. NO COMPLAINTS OF DISCOMFORT. PT WAS VERY HUNGRY THIS MORNING WHILE WAITING TO GET HER ULTRASOUND. PT IS EATING AND DRINKING WELL. ALERT AND ORIENTED X4. PT IS GETTING UP TO THE BSC WITH 1 ASSIST. FAMILY AT BEDSIDE. PT IS EATING AND DRINKING WELL. LUNG SOUNDS DIMINISHED. ABDOMEN SOFT/LARGE WITH ACTIVE BOWEL SOUNDS. STOOL WAS COLLECTED AND SENT TO THE LAB. TELFA/TEGADERM DRESSING WAS APPLIED TO [facility] ON THE RLE. VSS. WILL CONTINUE TO MONITOR.
[2020-11-19 13:19] LABS: Occult Blood,Stool Positive (Negative)
[2020-11-19 13:50] LABS: POC Glucose,Bedside 260 (70-110)
[2020-11-19 15:11] VITALS: BMI 38.5
[2020-11-19 15:13] VITALS: BP 127/48; PULSE 70; RESP 16; TEMP 36.9; O2SAT 96
[2020-11-19 17:58] LABS: Glucose,Random 541 mg/dL (74-100)
[2020-11-19 18:24] LABS: POC Glucose,Bedside 516 (70-110)
[2020-11-19 20:00] VITALS: BP 166/70; PULSE 61; RESP 18; TEMP 36.6; O2SAT 100
[2020-11-19 21:59] LABS: Glucose,Random 504 mg/dL (74-100)
[2020-11-20 01:22] LABS: POC Glucose,Bedside 508 (70-110)
[2020-11-20 03:56] VITALS: BP 134/60; PULSE 80; RESP 20; TEMP 37.1; O2SAT 97
[2020-11-20 05:00] VITALS: BMI 39.2
--- NOTE | 2020-11-20 05:32 | PC.NURSE ---
Patient alert and oriented X 4. Patient NH3 18, patient remains on Lactulose. PAtient BG elevated to 508, called MD, ordered at STAT Glucose, administered 20 units S/S, d/c Lantus 30 units and new order per MD 40 units SQ ACHS. Will continue to monitor for any acute changes.
[2020-11-20 06:20] LABS: POC Glucose,Bedside 187 (70-110)
[2020-11-20 07:27] VITALS: BP 117/47; PULSE 76; RESP 19; TEMP 37.1; O2SAT 98
--- NOTE | 2020-11-20 08:15 | HMH.ACPN2 ---
<Nessa Hernandez - Last Filed: 11/20/20 08:15> Internal Medicine - PN: Subj *Date: 11/20/20 *Time: 08:15 Interval history: Did have a really good night's sleep. She denies pain and shortness of breath. She set up in a chair yesterday. She is eating without problems. Bowels are moving and she is voiding well without her catheter. She was seen by gastroenterology yesterday with recommendations to increase lactulose to 10 mL 3 times daily. Plan is for her to follow-up at least every 6 months. Also felt that she possibly would need EGD to rule out esophageal varices as a source of her anemia. Last EGD was noted to be 09/2018. Blood sugars yesterday noted to be 516, 541, 508, 504, and 187 this morning. She remains on Lantus 40 units daily which was increased yesterday along with her sliding scale. Abdominal ultrasound 11/19/2020 with the following results: IMPRESSION: Findings are consistent with cirrhosis of the liver. Hyperechogenicity of the kidneys bilaterally, suggestive of medical renal disease. Exam Vital signs and Labs for Last 24 Hours: Temp Pulse Resp BP Pulse Ox 98.7 F 76 19 117/47 L 98 11/20/20 07:27 11/20/20 07:27 11/20/20 07:27 11/20/20 07:27 11/20/20 07:27 Laboratory Results - last 24 hr 11/19/20 11:09: POC Glucose 260 H 11/19/20 11:36: PT 12.4, INR 1.06 11/19/20 12:10: Stool Occult Blood Positive A 11/19/20 17:10: POC Glucose 516 H* 11/19/20 17:28: Random Glucose 541 H* 11/19/20 21:05: POC Glucose 508 H* 11/19/20 21:25: Random Glucose 504 H* 11/20/20 06:10: POC Glucose 187 H I & O for Last 24 hours: Intake & Output 11/17/20 11/18/20 11/19/20 11/20/20 11:59 11:59 11:59 11:59 Intake Total 312 / 312 1255 / 1255 2419 / 2419 1867 / 1867 Output Total 950 / 950 0 / 0 2577 / 2577 350 / 350 Balance -638 / -638 1255 / 1255 -158 / -158 1517 / 1517 Weight 197 lb 2 oz 197 lb 1.986 oz 197 lb 1 oz 200 lb - Constitutional no acute distress Comments: Awakened easily from sound sleep for exam. - *Routine Respiratory Exam Present: CTA bilaterally (Anteriorly and posteriorly) - *Routine Cardiovascular Exam Present: RRR - *Routine Abdominal Exam Present: soft, normoactive bowel sounds. Absent: tenderness - *Routine Extremities Exam Absent: edema, calf tenderness - *Routine Neurological Exam Present: alert, oriented X3 Assessment and Plan (1) Hepatic encephalopathy Status: Acute Category: Medical Code(s): K72.90 - Hepatic failure, unspecified without coma (2) Non-alcoholic cirrhosis Status: Acute Category: Medical Code(s): K74.60 - Unspecified cirrhosis of liver (3) Type 2 diabetes mellitus Status: Acute Category: Medical Code(s): E11.9 - Type 2 diabetes mellitus without complications (4) Hypertension Status: Acute Category: Medical Code(s): I10 - Essential (primary) hypertension (5) History of ASCVD Status: Acute Category: Medical Code(s): Z86.79 - Personal history of other diseases of the circulatory system (6) Osteoarthritis Status: Acute Category: Medical Code(s): M19.90 - Unspecified osteoarthritis, unspecified site (7) Wound of right lower extremity Status: Acute Category: Medical Code(s): S81.801A - Unspecified open wound, right lower leg, initial encounter - Assessment and plan all Dx Assessment and Plan for all problems:: Continue with current care. Lantus has been increased. Possibly home today. <Earl Cali - Last Filed: 11/20/20 21:15> Internal Medicine - PN: Subj *Date: 11/20/20 *Time: 21:14 Exam Vital signs and Labs for Last 24 Hours: Temp Pulse Resp BP Pulse Ox 98.7 F 76 19 117/47 L 98 11/20/20 07:27 11/20/20 07:27 11/20/20 07:27 11/20/20 07:27 11/20/20 07:27 Laboratory Results - last 24 hr 11/19/20 21:05: POC Glucose 508 H* 11/19/20 21:25: Random Glucose 504 H* 11/20/20 06:10: POC Glucose 187 H I & O for Last 24 hours: Intake & Output 05/0
--- NOTE | 2020-11-23 13:04 | HMH.DCSUM ---
General - General Admission date:: 11/16/20 <VirajEarl marquez - 12/29/20 14:23> 11/16/20 <Aimee Soriano - 11/23/20 13:14> Discharge date: 11/20/20 <Aimee oSriano - 11/23/20 13:14> HPI HPI: Ms. Pineda is a 75-year-old white female with a history of nonalcoholic cirrhosis, type 2 diabetes mellitus, hypertension, and ASCVD. She was brought to emergency room yesterday because of sudden onset of confusion and agitation. Family reports that she has had some intermittent episodes over the past several weeks but yesterday was the most severe. She was worked-up in the emergency room and found to have an elevated ammonia level of 185. Lactate was elevated. No obvious source of infection. White count was normal. Head CT was unremarkable. She has been admitted at this time for further evaluation and treatment. She was restless through the night. She is more calm this morning. Her son is in the room and states that she recognized him and has been more coherent. <Aimee Soriano - 11/23/20 13:14> Hospital Course Hospital Course: The patient's mental status was altered due to hepatic encephalopathy. Her son who was present with her was not sure she had been taking her lactulose as prescribed and did not recall her last appointment with Dr. Chase. She was continued on IV fluid hydration and p.o. lactulose. She was placed on sliding scale coverage for blood sugar. There was no obvious source of infection as her white count was normal, chest x-ray was clear, and urine was unremarkable. An abdominal ultrasound was ordered and GI was consulted. Her abdominal ultrasound showed findings consistent with cirrhosis of the liver. There was hyperechogenicity of the kidneys bilaterally suggestive of medical renal disease. The patient did become much more alert and oriented. Her ammonia level improved and her bilirubin decreased as well. Her renal functions were stable. She did have a wound of the right lower extremity and wound care was provided. Her ammonia level normalized over the course of her stay. GI saw the patient and recommended she increase the lactulose to 10 mL 3 times a day. They wanted to see her in the specialty clinic after discharge and plan to follow her every 6 months. They encouraged the patient to take her medication routinely. They also recommended Hemoccult testing due to her anemia and felt she may need an EGD as an outpatient. By 11/20/2020, the patient had finally slept and was feeling much better. She was stable to be discharged home and will follow with both Dr. Cali and GI. <Aimee Soriano - 11/23/20 13:14> Objective Vital signs: Temp Pulse Resp BP Pulse Ox 98.7 F 76 19 117/47 L 98 11/20/20 07:27 11/20/20 07:27 11/20/20 07:27 11/20/20 07:27 11/20/20 07:27 <Earl Cali - 12/29/20 14:23> Temp Pulse Resp BP Pulse Ox 98.7 F 76 19 117/47 L 98 11/20/20 07:27 11/20/20 07:27 11/20/20 07:27 11/20/20 07:27 11/20/20 07:27 <Aimee Soriano - 11/23/20 13:14> Narrative: - Constitutional no acute distress Comments: Awakened easily from sound sleep for exam. - *Routine Respiratory Exam Present: CTA bilaterally (Anteriorly and posteriorly) - *Routine Cardiovascular Exam Present: RRR - *Routine Abdominal Exam Present: soft, normoactive bowel sounds. Absent: tenderness - *Routine Extremities Exam Absent: edema, calf tenderness - *Routine Neurological Exam Present: alert, oriented X3 <Aimee Soriano - 11/23/20 13:14> DS: Diagnosis - Discharge Diagnosis (1) Hepatic encephalopathy Status: Acute (2) Non-alcoholic cirrhosis Status: Acute (3) Type 2 diabetes mellitus Status: Acute (4) Hypertension Status: Acute (5) History of ASCVD Status: Acute (6) Osteoarthritis Status: Acute (7) Wound of right lower extremity Status: Acute <Aimee Soriano - 11/23/20 13:04> (1) Hepatic encephalopat
== END 2020-11-20 10:54 | disposition home or self-care (01) | DRG 442 ==
LOC: ER 20:34 → 2ND 20:45
PROVIDERS: Family Medicine; Nurse Practitioner Family; Admitting Provider Family Medicine; Emergency Provider Emergency Medicine; PCP Family Medicine; Visit Provider Family Medicine
DX: K72.00 Acute and subacute hepatic failure without coma (principal); K76.6 Portal hypertension; K74.60 Unspecified cirrhosis of liver; E11.9 Type 2 diabetes mellitus without complications; I25.10 Atherosclerotic heart disease of native coronary artery without angina pectoris; Z95.5 Presence of coronary angioplasty implant and graft; X58.XXXA Exposure to other specified factors, initial encounter; Z20.822 Contact with and (suspected) exposure to COVID-19; Z88.1 Allergy status to other antibiotic agents; Z88.0 Allergy status to penicillin; Z88.8 Allergy status to other drugs, medicaments and biological substances; J45.909 Unspecified asthma, uncomplicated; Z79.4 Long term (current) use of insulin; M19.90 Unspecified osteoarthritis, unspecified site; D69.6 Thrombocytopenia, unspecified; D63.8 Anemia in other chronic diseases classified elsewhere; K59.00 Constipation, unspecified; S80.921A Unspecified superficial injury of right lower leg, initial encounter
CPT/HCPCS: 36415; 70450; 71045; 76700; 80053; 80305; 81001; 82140; 82272; 82803; 82947; 82962; 83605; 84443; 85025; 85610; 87040; 99284; G0328; U0003

== ENCOUNTER → 2020-12-03 13:41 | Outpatient (POV) | payer MEDICARE, MEDICAID, SELFPAY | PROVIDERS: Visit Provider Nurse Practitioner Family | DX: Z00.00 Encounter for general adult medical examination without abnormal findings (principal) ==

== ENCOUNTER 2021-01-03 08:44 | Emergency (ER) | payer MEDICARE, MEDICAID, SELFPAY ==
[2021-01-03] VITALS (25 sets, daily range): BP systolic 121–169; BP diastolic 50–71; PULSE 77–96; RESP 0–20; TEMP 35.8–36.6; O2SAT 99–100; BMI 73.3; BMI 33.3
--- NOTE | 2021-01-03 08:46 | ECG_ITS ---
APPROVED REPORT Exam: Resting ECG HR:73 bpm ECG Measurements Heart Rate 73 AXES [place] 182 P 64 QRSd 150 QRS 49 QT 468 T 40 QTc 515 Conclusion Normal sinus rhythm Right bundle branch block Abnormal ECG Electronically signed by : Dmitriy Damian, 01/03/2021 18:03:00
--- NOTE | 2021-01-03 08:51 | XR_ITS ---
PROCEDURE: XR CHEST PORTABLE CLINICAL HISTORY: unresponsive COMPARISON: CR CXR CHEST(2 VIEWS-NOT PORTABLE) from 03/07/2015 CR XR CHEST PORTABLE from 06/18/2020 CR XR CHEST PORTABLE from 11/16/2020 FINDINGS: There is an endotracheal tube present. The tip is low in the region of the ostium of right mainstem bronchus. The tube should be withdrawn approximately 3-4 cm. There is a nasogastric tube present. The tip is in the region of the body of the stomach. Lungs are clear. Unremarkable cardiovascular structures. No acute bony abnormalities. IMPRESSION: Low position of the endotracheal tube. Good position of the nasogastric tube. Emergency room was contacted regarding the endotracheal tube position 01/03/2021 at 9:14 a.m. Dictated by: Roger Waters MD 01/03/2021 09:15 Roger Waters MD in [facility] 01/03/2021 09:15
--- NOTE | 2021-01-03 08:56 | PC.NURSE ---
OG tube placed at 68 at the lip. Bowel sounds auscultated after placement. Placement will verified by xray
--- NOTE | 2021-01-03 08:58 | HMH.EDGENADL ---
ED Disposition Clinical Impression: Hepatic coma/encephalopathy, Acute kidney injury, Hepatorenal syndrome Disposition: Admitted As Inpatient Condition on Discharge: Critical Instructions: DI for Altered Mental Status Referrals: Earl Cali MD [Primary Care Provider] - Forms: Transfer Record - ED - Critical Care Critical Care Time: Yes Attestation: On , the high probability of a clinically significant, sudden or life threatening deterioration of the following system(s) required my full and direct attention, intervention and personal management. The time I documented below is in addition to time spent performing reported procedures but includes the following listed in this critical care notation. Total Critical Care Time: 45 Vital system(s) involved:: Central Nervous System My critical care processes included: Assessment & monitoring of V/S, Initial and Re-exams, Data Review/Interpretation, Coordinating Care, Medication Orders and management, Documentation Medical Decision Making - Medical Records Medical records reviewed: Yes: I reviewed the patient's medical records. MR Comment: Reviewed discharge summary from admission 11/16/2020 through 11/23/2020 at this facility for hepatic encephalopathy. Treated without lactulose with good response. Ultrasound of the liver performed during that admission. Findings consistent with cirrhosis. The patient has a history of nonalcoholic cirrhosis. - Peng Inquiry Pt receiving controlled substance: No Vital Signs: 01/03/21 08:44 01/03/21 09:00 01/03/21 09:05 Temperature 96.5 F L Temperature Source Rectal Pulse Rate 77 Pulse Rate [Right] 79 Respiratory Rate 18 0 L 18 Blood Pressure 122/50 L Blood Pressure [Right Arm] 121/71 Blood Pressure Mean 74 Blood Pressure Mean [Right Arm] 87 02 Sat by Pulse Oximetry 99 100 100 Oxygen Delivery Method Non-Rebreather Mechanical Ventilation Oxygen Flow Rate (LPM) 60 01/03/21 09:10 01/03/21 09:15 01/03/21 09:20 Temperature Temperature Source Pulse Rate 77 78 79 Pulse Rate [Right] Respiratory Rate 18 18 18 Blood Pressure 123/50 L 128/51 L 135/54 L Blood Pressure [Right Arm] Blood Pressure Mean 69 75 80 Blood Pressure Mean [Right Arm] 02 Sat by Pulse Oximetry 100 100 100 Oxygen Delivery Method Mechanical Ventilation Mechanical Ventilation Oxygen Flow Rate (LPM) 01/03/21 09:25 01/03/21 09:30 01/03/21 09:35 Temperature Temperature Source Pulse Rate 78 81 83 Pulse Rate [Right] Respiratory Rate 16 16 16 Blood Pressure 133/56 L 133/55 L 144/57 H Blood Pressure [Right Arm] Blood Pressure Mean 75 82 72 Blood Pressure Mean [Right Arm] 02 Sat by Pulse Oximetry 100 100 99 Oxygen Delivery Method Oxygen Flow Rate (LPM) 01/03/21 09:45 01/03/21 09:49 01/03/21 09:50 Temperature 97.0 F L Temperature Source Rectal Pulse Rate 87 85 86 Pulse Rate [Right] Respiratory Rate 16 16 16 Blood Pressure 149/64 H 149/64 H 154/61 H Blood Pressure [Right Arm] Blood Pressure Mean 73 83 Blood Pressure Mean [Right Arm] 02 Sat by Pulse Oximetry 99 100 100 Oxygen Delivery Method Mechanical Ventilation Oxygen Flow Rate (LPM) 01/03/21 09:55 01/03/21 10:00 01/03/21 10:25 Temperature Temperature Source Pulse Rate 90 91 H Pulse Rate [Right] Respiratory Rate 16 16 20 Blood Pressure 151/61 H 153/61 H 155/55 H Blood Pressure [Right Arm] Blood Pressure Mean 88 84 Blood Pressure Mean [Right Arm] 02 Sat by Pulse Oximetry 99 99 99 Oxygen Delivery Method Mechanical Ventilation Oxygen Flow Rate (LPM) 01/03/21 10:35 01/03/21 10:54 01/03/21 11:00 Temperature 97.8 F Temperature Source Rectal Pulse Rate 90 94 H 94 H Pulse Rate [Right] Respiratory Rate 18 16 18 Blood Pressure 169/69 H 146/57 H 156/59 H Blood Pressure [Right Arm] Blood Pressure Mean 78 Blood Pressure Mean [Right Arm] 02 Sat by Pulse Oximetry 100 99 99
[2021-01-03 09:00] LABS: Basophils % 0.2 % (0.1-2.0); Eosinophils # 0.1 K/mm3 (0.0-0.4); Hematocrit 30.6 % (37.0-47.0); Hemoglobin 10.5 g/dL (12.2-16.2); Lymphocytes % 8.7 % (10-50); Mean Corpuscular HGB Conc 34.3 g/dL (31.8-35.4); Mean Corpuscular Hemoglobin 30.3 pg (27.0-31.2); Mean Corpuscular Volume 88.4 fl (81-99); Mean Platelet Volume 11.6 fl (7.4-10.4); Monocytes # 0.6 K/mm3 (0.1-1.0); Monocytes % 5.6 % (1.7-9.3); Neutrophils # 9.2 K/mm3 (1.8-7.8); Neutrophils % 84.4 % (37.0-80.0); Platelet Count 131 K/mm3 (142-424); Red Blood Count 3.46 M/mm3 (4.20-5.40); Red Cell Distribution Width 16.4 % (11.5-17.5); White Blood Count 10.8 K/mm3 (4.8-10.8)
[2021-01-03 09:03] LABS: Chloride 103 mmol/L (98-107); Potassium 5.9 mmoL/L (3.5-5.1); Sodium 135 mmol/L (136-145)
[2021-01-03 09:06] LABS: Alanine Aminotransferase 38 U/L (12-78); Albumin Level 3.8 g/dl (3.5-5.0); Albumin/Globulin Ratio 1.2 (1.1-1.8); Alkaline Phosphatase 166 U/L (38-126); Anion Gap 20.9 mEq/L (5-15); Aspartate Amino Transferase 83 U/L (14-36); Carbon Dioxide 17 mmol/L (22.0-30.0); Creatinine Clearance Estimated 26 mL/min (50-200); Estimated Glomerular Filt Rate 17 ml/min (>60); GFR (African American) 21 ML/MIN (>60); Globulin 3.3 g/dL (1.3-3.2); Total Protein,Serum 7.1 g/dl (6.3-8.2)
[2021-01-03 09:07] LABS: Calcium 9.4 mg/dl (8.4-10.2); Glucose 343 mg/dl (74-100)
[2021-01-03 09:08] LABS: Blood Urea Nitrogen 80 mg/dl (7-17)
[2021-01-03 09:09] LABS: Ammonia 495 umol/L (9-30)
[2021-01-03 09:10] LABS: Lactic Acid 4.2 mmol/L (0.7-2.1)
[2021-01-03 09:18] LABS: Troponin I < 0.01 ng/ml (0.00-0.034)
--- NOTE | 2021-01-03 09:21 | PC.NURSE ---
notified of bun
[2021-01-03 09:23] LABS: Microscopic, Urine URINE MICROSCOPIC (MICROSCOPIC)
[2021-01-03 09:23] LABS: Erythrocyte Sedimentation Rate 102 mm/hr (0-30)
[2021-01-03 09:28] LABS: Appearance,Urine CLEAR (Clear); Bilirubin,Urine Negative (Negative); Blood, Urine Negative (Negative); Color,Urine YELLOW (Yellow); Glucose,Urine (UA) 1+ (Negative); Ketones,Urine Negative (Negative); Leukocyte Esterase,Urine Negative (Negative); Nitrate,Urine POSITIVE (Negative); PH,Urine 5.5 (5.0-8.5); Protein,Urine Negative (Negative); Urobilinogen,Urine 0.2 EU/dl (0.2)
[2021-01-03 09:28] LABS: Acetaminophen < 10 ug/ml (10-30); Ethyl Alcohol < 10 mg/dl (0-10); Salicylate < 1.0 mg/dL (2.0-20.0)
--- NOTE | 2021-01-03 09:28 | PC.NURSE ---
Patient placed in a franki hugger at this time
[2021-01-03 09:36] LABS: Yeast,Urine Occasional /lpf
[2021-01-03 09:39] LABS: ABG HCO3 19.5 mmhg (22.0-26.0); ABG Oxygen Saturation 99 % (90-100); ABG PCO2 30.7 mmhg (35.0-45.0); ABG PH 7.42 mmol/L (7.35-7.45); ABG PO2 186.6 mmhg (80-100); ABG TCO2 20.4 mmhg (23-27)
[2021-01-03 09:42] LABS: Amphetamine/Metha Screen,Urine Negative ng/ml (<1000); Barbiturates Screen,Urine Negative ng/ml (<200)
[2021-01-03 09:44] LABS: Cannabinoid Screen,Urine Negative ng/ml (<50)
[2021-01-03 09:45] LABS: Cocaine Screen,Urine Negative ng/ml (<300); Methadone Screen,Urine Negative ng/ml (<300)
[2021-01-03 09:47] LABS: Opiate Screen,Urine Negative ng/ml (<300)
[2021-01-03 09:48] LABS: Phencyclidine Screen,Urine Negative ng/ml (<25)
[2021-01-03 09:51] LABS: Benzodiazepines Screen,Urine Negative ng/ml (<200)
[2021-01-03 09:51] LABS: Oxygen 60 %
[2021-01-03 09:52] LABS: Allen's Test Patient Unable; PEEP 5; Source Left Radial; Tidal Volume 400; Vent Rate 16
[2021-01-03 10:03] LABS: Activated Partial Thrombo Time 24.5 seconds (22.8-30.6); Prothrombin Time 11.7 seconds (10.1-12.5)
--- NOTE | 2021-01-03 10:06 | CT_ITS ---
PROCEDURE: CT HEAD/BRAIN WO CON CLINICAL INDICATION: AMS Unresponsive. Altered mental status, altered level of consciousness, confusion, disorientation COMPARISON: CT CT HEAD/BRAIN WO CON from 11/16/2020 TECHNIQUE: Axial images obtained. All CT scans at the facility use one or more dose reduction, viz: automated exposure control, ma/kV adjustment per patient size (including targeted exams where dose is matched to indication, i.e. head), or iterative reconstruction technique. FINDINGS: No midline shift, mass effect, intracranial hemorrhage, hydrocephalus, or extra-axial fluid collection is evident. There is generalized atrophy with hypoattenuation of the periventricular white matter consistent with microangiopathic changes. The calvarium has an unremarkable appearance. No mastoid effusion. No sinus air-fluid level. IMPRESSION: No acute intracranial finding Dictated by: Roger Waters MD 01/03/2021 10:46 Roger Waters MD in [facility] 01/03/2021 10:46
[2021-01-03 10:07] LABS: INR 0.99 (0.9-1.1)
--- NOTE | 2021-01-03 10:21 | PC.NURSE ---
OFF FLOOR AT THIS TIME WITH PATIENT FOR CT
--- NOTE | 2021-01-03 10:22 | CT_ITS ---
PROCEDURE: CT ABDOMEN PELVIS WO CON CLINICAL INDICATION: liver failure, vomiting COMPARISON: No exams were available for comparison TECHNIQUE: Axial images obtained with sagittal and coronal reformats. All CT scans at the facility use one or more dose reduction, viz: automated exposure control, ma/kV adjustment per patient size (including targeted exams where dose is matched to indication, i.e. head), or iterative reconstruction technique. FINDINGS: LOWER THORAX: Consolidation is present in the left lung base posteriorly consistent with pneumonia. Coronary artery calcifications are present. ABDOMEN & PELVIS: Slightly elevated right hemidiaphragm. Nasogastric tube is present with the tip in the region the antrum of the stomach. There has been a prior cholecystectomy. Nodular appearing surface of the liver consistent with cirrhosis.. Borderline splenomegaly at 13 cm. Perisplenic and Merary renal varices are present. The adrenal glands and kidneys have an unremarkable appearance. There is a duodenal diverticulum with an air-fluid level. The diverticulum measures 3 cm. No intestinal obstruction or free air. No evidence of appendicitis. There is colonic diverticulosis. There is some minimal stranding of the pericolic fat in the distal descending colon region in the left lower quadrant which could be due to mild diverticulitis. There is thickening of the proximal sigmoid colon nonspecific no abscess or free air apparent. There is a Murcia catheter present. Small umbilical hernia containing fat. Degenerative changes lumbar spine. IMPRESSION: 1. Cirrhosis with borderline splenomegaly and perisplenic and Merary renal varices consistent with portal hypertension. 2. Colonic diverticulosis with possible mild diverticulitis in the distal descending colon Dictated by: Roger Waters MD 01/03/2021 10:55 Roger Waters MD in [facility] 01/03/2021 10:55
--- NOTE | 2021-01-03 10:25 | PC.NURSE ---
Pt to radiology with RN and respiratory present
--- NOTE | 2021-01-03 10:41 | PC.NURSE ---
Family approached desk requesting pt go to . Dr Werner advised, he was on phone with Dr Cali and he advised him as well.
--- NOTE | 2021-01-03 10:45 | PC.NURSE ---
BACK FROM CT WITH PATIENT
--- NOTE | 2021-01-03 10:48 | PC.NURSE ---
Patient's daughter and stated POA is at bedside. Patient's POA was given all of patient's belongings including dentures.
--- NOTE | 2021-01-03 10:49 | PC.NURSE ---
dentures placed in a denture cup
--- NOTE | 2021-01-03 11:01 | PC.NURSE ---
placed call for double surface operator at
--- NOTE | 2021-01-03 11:08 | PC.NURSE ---
Dr. Werner consulting with Dr. Emerson at at this time
--- NOTE | 2021-01-03 11:20 | PC.NURSE ---
Dr Werner speaking with Dr Cali
[2021-01-03 11:23] LABS: Coronavirus 19, PCR Not Detected (NotDetected); Influenza A, PCR Not Detected (NotDetected); Influenza B, PCR Not Detected (NotDetected)
--- NOTE | 2021-01-03 11:33 | PC.NURSE ---
Dr Werner speaking to Dr Cali
--- NOTE | 2021-01-03 11:49 | PC.NURSE ---
[facility] called stating they have a bed for pt at [facility] room 450
--- NOTE | 2021-01-03 11:55 | PC.NURSE ---
office notified about pt bed at and transfer there
--- NOTE | 2021-01-03 11:58 | PC.NURSE ---
REPORT CALLED TO DAYNE BRAUN AT [facility] AT THIS TIME
--- NOTE | 2021-01-03 12:12 | HMH.HP ---
*Admission Date: 01/03/21 *History of present illness: Ms. Pineda is a 75-year-old female with a history of cirrhosis and nonalcoholic fatty liver. The patient is followed by Dr. Chase. She was just recently admitted in November of this year with hepatic encephalopathy. She had a GI consultation with Dr. Chase during that admission and was started back on lactulose due to an elevated ammonia level. Her family found her unresponsive this morning. Apparently she had been up at 1 AM vomiting. EMS was called and her glucose was in the 400s. She was brought to the ER for evaluation and her ammonia level was extremely elevated. Her family states she is compliant with her lactulose, but they were concerned with the elevated ammonia level. At the patient's last appointment with GI, they talked about starting her on a pill to control her ammonia level, but it has yet to be started. The patient was intubated. Her urinalysis showed positive nitrites, therefore she was started on Invanz. Her family requested transfer to the [facility], however their emergency department is on diversion. They recommended admission at [facility] to an intensive care bed and as soon as a bed is available at , she can be transferred. Her family agreed to admit her here. She was continued on Invanz as well as IV fluids and sliding scale insulin. She was started on lactulose 30 mils per NG 4 times daily. She is still currently in the emergency room [facility] History I have reviewed the patient's past medical history: Yes Medical History: Reports:: Asthma (Hello), Atherosclerotic Heart Disease, Coronary Artery Disease, Diabetes Mellitus Type 2, Hypertension, Lung Disease (ASTHMA), Myocardial Infarction Denies:: Diabetes Mellitus Type 1, Internal Pacemaker, Seizures *Have you ever received a pneumonia vaccine?: No (UNKNOWN) *Have you received a flu vaccine this season?: No (UNKNOWN) Other Medical History: Reports: Anemia (Chronic), Arthritis, Liver Disease (Nonalcoholic cirrhosis) Other Surgeries: Yes: Cholecystectomy, Coronary Stent (2000), Hysterectomy-Total, Other (Tonsillectomy, full mouth extraction). No: Pacemaker Fractures: Yes - *Social History Smoking Status: Never smoker Alcohol Intake: never *Occupational Status:: retired Housing: house Household Members: children Family Hx:: Cancer, Heart Attack Review of Systems - Review of Systems Review of systems:: unable to obtain Meds Home Medications Medication Instructions Recorded Confirmed Type Aspirin [Aspirin 325mg Tab] 325 mg PO DAILY 09/24/18 01/03/21 History Dulaglutide [Trulicity] 1.5 mg SQ WEEKLY 09/24/18 01/03/21 History Furosemide [Furosemide 40MG tAB*] 40 mg PO DAILYP PRN 09/24/18 01/03/21 History Glimepiride 4 mg PO DAILY 09/24/18 01/03/21 History Insulin Glargine,Hum.rec.anlog 65 units SQ BID 09/24/18 01/03/21 History [Toujeo Solostar] Metformin HCl 500 mg PO BID 09/24/18 01/03/21 History Methylcellulose (with Sugar) 850 gm PO DAILY 09/24/18 01/03/21 History [Citrucel Powder] Metoprolol Tartrate 50 mg PO DAILY 09/24/18 01/03/21 History Valsartan/Hydrochlorothiazide 1 tab PO DAILY 09/24/18 01/03/21 History [Valsartan-Hctz 80-12.5 mg Tab] polyethylene glycoL 3350 [Miralax 17 gm PO DAILY 09/24/18 01/03/21 History 17gm Packet] Spironolactone [Aldactone 25mg 25 mg PO Q48H 11/17/20 01/03/21 History Tab] Tramadol HCl [Tramadol 50mg 50 mg PO TIDP PRN 11/17/20 01/03/21 History Tab] clonazePAM [Clonazepam] 0.5 mg PO TIDP PRN 11/17/20 01/03/21 History Lactulose [Lactulose 20gm/30ml 10 gm PO TID #0 11/20/20 01/03/21 Rx Oral Soln] Gabapentin [Gabapentin 100mg Cap] 100 mg PO HS 01/03/21 01/03/21 History Allergies Allergy/AdvReac Type Severity Reaction Status Date / Time amoxicillin [From AUGMENTIN] Allergy Intermediate I-RASH Verified 11/16/20 16:59 clarithromycin [From BIAXIN] Allergy Intermediate NA-NAUSEA/V Verified 11/16/20 16:59 O
[2021-01-03 12:34] LABS: Troponin I < 0.01 ng/ml (0.00-0.034)
[2021-01-03 12:56] LABS: Reflex Lactic Add Lactic Reflex
--- NOTE | 2021-01-03 13:24 | PC.NURSE ---
[facility] LEFT WITH PATIENT AT THIS TIME. ICU STAFF AT [facility] NOTIFIED OF PATIENTS DEPARTURE.
== END 2021-01-03 13:24 | disposition short-term general hospital (02) ==
LOC: ER 10:32 → 2ND 11:33
PROVIDERS: Emergency Provider Emergency Medicine; PCP Family Medicine
DX: K72.91 Hepatic failure, unspecified with coma (principal); K74.69 Other cirrhosis of liver; K76.7 Hepatorenal syndrome; N17.9 Acute kidney failure, unspecified; E11.65 Type 2 diabetes mellitus with hyperglycemia; I10 Essential (primary) hypertension; Z79.899 Other long term (current) drug therapy; Z20.822 Contact with and (suspected) exposure to COVID-19
CPT/HCPCS: 31500; 36415; 70450; 71045; 74176; 80053; 80305; 80329; 81001; 82140; 82803; 83605; 84484; 85025; 85610; 85651; 85730; 87040; 87070; 87077; 87186; 87205; 93005; 96374; 99284; J1335; U0003

== ENCOUNTER → 2021-02-13 16:00 | Outpatient (CLI) | payer MEDICARE, MEDICAID, SELFPAY ==
[2021-02-13 16:51] LABS: Ammonia 9 umol/L (9-30)
== END ==
PROVIDERS: Visit Provider Family Medicine
DX: K74.60 Unspecified cirrhosis of liver (principal)
CPT/HCPCS: 36415; 82140

== ENCOUNTER → 2021-05-06 10:51 | Outpatient (CLI) | payer MEDICARE, MEDICAID, SELFPAY ==
[2021-05-06 11:24] LABS: Ammonia 23 umol/L (9-30)
== END ==
PROVIDERS: Visit Provider Family Medicine
DX: K74.60 Unspecified cirrhosis of liver (principal)
CPT/HCPCS: 36415; 82140

== ENCOUNTER → 2021-05-27 08:13 | Outpatient (CLI) | payer MEDICARE, MEDICAID, SELFPAY ==
--- NOTE | 2021-05-27 08:16 | US_ITS ---
PROCEDURE: US ABDOMEN LIMITED W/DOPPLER CLINICAL INDICATION: CIRRHOSIS,ANEMIA,STEATOHEPATITIS,BLOOD IN STOOL COMPARISON: US US ABDOMEN COMPLETE from 11/19/2020 FINDINGS: PANCREAS: Pancreatic tail is not well demonstrated. The body and head of the pancreas have an unremarkable appearance LIVER: Liver margins are irregular. There is coarse echogenicity of the liver. No portal blood flow was able to be delineated. Hepatic veins are patent. Portal vein is not enlarged. No dopplerable signal within the portal vein. Common bile duct is normal at 2 mm. RIGHT KIDNEY: Unremarkable. Normal size and echogenicity. No hydronephrosis GALLBLADDER: Prior cholecystectomy. IMPRESSION: No dopplerable or color flow signal within the portal vein consistent with portal vein thrombosis. Cirrhotic appearance of the liver Dictated by: Roger Waters MD 05/27/2021 12:24 Roger Waters MD in [facility] 05/27/2021 12:24
== END ==
PROVIDERS: PCP Family Medicine; Visit Provider Nurse Practitioner Family
DX: K74.60 Unspecified cirrhosis of liver (principal); K75.81 Nonalcoholic steatohepatitis (NASH); K59.00 Constipation, unspecified; D64.9 Anemia, unspecified; R19.5 Other fecal abnormalities; I85.00 Esophageal varices without bleeding; K76.6 Portal hypertension; K72.90 Hepatic failure, unspecified without coma
CPT/HCPCS: 93975

== ENCOUNTER → 2021-05-28 12:47 | Outpatient (CLI) | payer MEDICARE, MEDICAID, SELFPAY ==
[2021-05-29 04:21] LABS: AFP, Tumor Marker 4.3 ng/mL (0.0-8.3)
== END ==
PROVIDERS: Visit Provider Internal Medicine Gastroenterology
DX: K74.60 Unspecified cirrhosis of liver (principal); D64.9 Anemia, unspecified; K72.90 Hepatic failure, unspecified without coma
CPT/HCPCS: 36415; 82105

== ENCOUNTER 2021-06-17 16:16 | Emergency (ER) | payer MEDICARE, MEDICAID, SELFPAY ==
[2021-06-17 16:17] VITALS: BP 165/81; PULSE 66; RESP 18; TEMP 36.5; O2SAT 100; BMI 34.9
[2021-06-17 17:53] LABS: Microscopic, Urine URINE MICROSCOPIC (MICROSCOPIC)
[2021-06-17 18:09] LABS: Appearance,Urine SL CLOUDY (Clear); Bilirubin,Urine Negative (Negative); Blood, Urine Negative (Negative); Color,Urine YELLOW (Yellow); Glucose,Urine (UA) Negative (Negative); Ketones,Urine Negative (Negative); Leukocyte Esterase,Urine Negative (Negative); Nitrate,Urine Negative (Negative); Protein,Urine Negative (Negative); Urobilinogen,Urine 0.2 EU/dl (0.2)
[2021-06-17 18:24] LABS: Chloride 110 mmol/L (98-107); Potassium 4.9 mmoL/L (3.5-5.1); Sodium 145 mmol/L (136-145)
[2021-06-17 18:26] LABS: Blood Urea Nitrogen 32 mg/dl (7-17); Creatinine Clearance Estimated 51 mL/min (50-200); Estimated Glomerular Filt Rate 44 ml/min (>60); GFR (African American) 53 ML/MIN (>60)
[2021-06-17 18:27] LABS: Alanine Aminotransferase 36 U/L (12-78); Albumin Level 3.7 g/dl (3.5-5.0); Albumin/Globulin Ratio 1.1 (1.1-1.8); Alkaline Phosphatase 184 U/L (38-126); Ammonia 39 umol/L (9-30); Anion Gap 10.9 mEq/L (5-15); Aspartate Amino Transferase 67 U/L (14-36); Bilirubin,Total 1.1 mg/dl (0.2-1.3); Calcium 10.2 mg/dl (8.4-10.2); Carbon Dioxide 29 mmol/L (22.0-30.0); Globulin 3.3 g/dL (1.3-3.2); Glucose 156 mg/dl (74-100); Lipase 124 U/L (23-300)
[2021-06-17 18:31] LABS: Lactic Acid 2.7 mmol/L (0.7-2.1)
[2021-06-17 18:34] LABS: Basophils % 0.5 % (0.1-2.0); Eosinophils # 0.2 K/mm3 (0.0-0.4); Eosinophils % 3.1 % (0.1-12.0); Hematocrit 32.5 % (37.0-47.0); Lymphocytes # 1.6 K/mm3 (0.7-4.5); Lymphocytes % 30.3 % (10-50); Mean Corpuscular HGB Conc 33.7 g/dL (31.8-35.4); Mean Corpuscular Hemoglobin 31.1 pg (27.0-31.2); Mean Corpuscular Volume 92.3 fl (81-99); Mean Platelet Volume 10.9 fl (7.4-10.4); Monocytes # 0.4 K/mm3 (0.1-1.0); Monocytes % 7.4 % (1.7-9.3); Neutrophils % 58.7 % (37.0-80.0); Platelet Count 92 K/mm3 (142-424); Red Blood Count 3.53 M/mm3 (4.20-5.40); Red Cell Distribution Width 15.8 % (11.5-17.5); White Blood Count 5.2 K/mm3 (4.8-10.8)
[2021-06-17 18:38] LABS: Bacteria,Urine 4+ /lpf; RBC,Urine Occasional #/hpf (0-3)
[2021-06-17 19:39] VITALS: BP 154/60; PULSE 63; O2SAT 100
[2021-06-17 20:17] VITALS: BP 152/60; PULSE 80; RESP 19; TEMP 36.7; O2SAT 99
[2021-06-17 20:34] VITALS: BP 152/60; PULSE 80; RESP 19; TEMP 36.6; O2SAT 97
--- NOTE | 2021-07-09 20:48 | HMH.EDGENADL ---
ED Disposition Clinical Impression: History of ASCVD UTI (urinary tract infection) Qualifiers: Urinary tract infection type: acute cystitis Hematuria presence: without hematuria Qualified Code(s): N30.00 - Acute cystitis without hematuria Constipation Qualifiers: Constipation type: unspecified constipation type Qualified Code(s): K59.00 - Constipation, unspecified Disposition: Home, Self-Care Condition on Discharge: Good Additional Instructions: Take antibiotics as directed, continue all medications as previously directed. Return ED with new or worsening symptoms. Follow-up with your primary care physician in 1 to 3 days. Drink plenty fluids, stay hydrated. Referrals: Earl Cali MD [Primary Care Provider] - - Critical Care Critical Care Time: No Attestation: On 06/17/21, the high probability of a clinically significant, sudden or life threatening deterioration of the following system(s) required my full and direct attention, intervention and personal management. The time I documented below is in addition to time spent performing reported procedures but includes the following listed in this critical care notation. Medical Decision Making - Medical Records Medical records reviewed: Yes: I reviewed the patient's medical records. - Peng Inquiry Pt receiving controlled substance: No Vital Signs: 06/17/21 16:17 06/17/21 19:39 06/17/21 20:17 Temperature 97.7 F 98.0 F Temperature Source Oral Oral Pulse Rate 63 80 Pulse Rate [Left Radial] 66 Respiratory Rate 18 19 Blood Pressure 154/60 H 152/60 H Blood Pressure [Right Arm] 165/81 H Blood Pressure Mean [Right Arm] 109 Blood Pressure Source [Right Arm] Automatic Cuff Blood Pressure Position [Right Arm] Sitting 02 Sat by Pulse Oximetry 100 100 Oxygen Delivery Method Room Air Room Air Room Air 06/17/21 20:34 Temperature 98 F Temperature Source Oral Pulse Rate 80 Pulse Rate [Left Radial] Respiratory Rate 19 Blood Pressure 152/60 H Blood Pressure [Right Arm] Blood Pressure Mean [Right Arm] Blood Pressure Source [Right Arm] Blood Pressure Position [Right Arm] 02 Sat by Pulse Oximetry Oxygen Delivery Method Room Air - Lab Data Lab Results 06/17/21 17:25: Urine Color Yellow, Urine Appearance Sl cloudy, Urine pH 6.0, Ur Specific [place] 1.020, Urine Protein Negative, Urine Glucose (UA) Negative, Urine Ketones Negative, Urine Blood Negative, Urine Nitrate Negative, Urine Bilirubin Negative, Urine Urobilinogen 0.2, Ur Leukocyte Esterase Negative, Urine RBC Occasional, Urine WBC 5-10, Ur Squamous Epith Cells 3-5, Urine Bacteria 4+ 06/17/21 18:03: WBC 5.2, RBC 3.53 L, Hgb 11.0 L, Hct 32.5 L, MCV 92.3, MCH 31.1, MCHC 33.7, RDW 15.8, Plt Count 92 L, MPV 10.9 H, Neut % (Auto) 58.7, Lymph % (Auto) 30.3, [place] % (Auto) 7.4, Eos % (Auto) 3.1, Baso % (Auto) 0.5, Neut # (Auto) 3.0, Lymph # (Auto) 1.6, [place] # (Auto) 0.4, Eos # (Auto) 0.2, Baso # (Auto) 0.0 06/17/21 18:03: Sodium 145, Potassium 4.9, Chloride 110 H, Carbon Dioxide 29, Anion Gap 10.9, BUN 32 H, Creatinine 1.20 H, Estimated Creat Clear 51, Estimated GFR 44 L, Est GFR ( Amer) 53 L, Glucose 156 H, Calcium 10.2, Total Bilirubin 1.1, AST 67 H, ALT 36, Alkaline Phosphatase 184 H, Total Protein 7.0, Albumin 3.7, Globulin 3.3 H, Albumin/Globulin Ratio 1.1, Lipase 124 06/17/21 18:03: Lactate 2.7 H 06/17/21 18:03: Ammonia 39 H Result diagrams: 06/17/21 18:03 06/17/21 18:03 Medical Decision Narrative: 76-year-old female with past medical history of Barron cirrhosis, hepatic encephalopathy who is presenting to the ED with confusion, constipation. Differential diagnoses include constipation, hepatic encephalopathy, advanced cirrhosis, spontaneous bacterial peritonitis, urinary tract infection, electrolyte abnormalities, dehydration. Given this work-up will include physical exam, CBC, CMP, ammonia level, urinalysis. Her vital signs are stable, she is afebrile, normotensive, no si
== END 2021-06-17 20:40 | disposition home or self-care (01) ==
PROVIDERS: Emergency Provider Emergency Medicine; PCP Family Medicine
DX: N30.00 Acute cystitis without hematuria (principal); K59.00 Constipation, unspecified; I25.10 Atherosclerotic heart disease of native coronary artery without angina pectoris; I10 Essential (primary) hypertension; E78.5 Hyperlipidemia, unspecified; E11.9 Type 2 diabetes mellitus without complications; Z88.1 Allergy status to other antibiotic agents; Z79.899 Other long term (current) drug therapy
CPT/HCPCS: 36415; 80053; 81001; 82140; 83605; 83690; 85025; 87086; 87088; 87186; 99283

== ENCOUNTER 2021-07-06 11:40 | Inpatient (IN) | payer MEDICARE, MEDICAID, SELFPAY ==
[2021-07-06] VITALS (14 sets, daily range): BP systolic 148–204; BP diastolic 60–91; PULSE 64–80; RESP 18–20; TEMP 36.6–36.8; O2SAT 94–997; BMI 34.0; BMI 35.5
[2021-07-06 12:03] LABS: POC Glucose,Bedside 431 (70-110)
[2021-07-06 12:38] LABS: Microscopic, Urine URINE MICROSCOPIC (MICROSCOPIC)
[2021-07-06 12:41] LABS: Appearance,Urine SL CLOUDY (Clear); Bilirubin,Urine Negative (Negative); Blood, Urine Negative (Negative); Color,Urine YELLOW (Yellow); Glucose,Urine (UA) 3+ (Negative); Ketones,Urine Negative (Negative); Leukocyte Esterase,Urine Negative (Negative); Nitrate,Urine Negative (Negative); Protein,Urine Negative (Negative); Specific Gravity, Urine 1.015 (1.005-1.030); Urobilinogen,Urine 0.2 EU/dl (0.2)
[2021-07-06 13:00] LABS: WBC,Urine Occasional #/hpf (0-3)
[2021-07-06 13:01] LABS: Bacteria,Urine Trace /lpf; Squamous Epithelial Cell,Urine Occasional #/hpf (0-5)
[2021-07-06 13:06] LABS: Basophils % 0.6 % (0.1-2.0); Eosinophils % 0.9 % (0.1-12.0); Hematocrit 33.4 % (37.0-47.0); Hemoglobin 10.5 g/dL (12.2-16.2); Lymphocytes # 0.9 K/mm3 (0.7-4.5); Lymphocytes % 20.8 % (10-50); Mean Corpuscular HGB Conc 31.5 g/dL (31.8-35.4); Mean Corpuscular Hemoglobin 30.6 pg (27.0-31.2); Mean Corpuscular Volume 97.1 fl (81-99); Mean Platelet Volume 11.8 fl (7.4-10.4); Monocytes # 0.3 K/mm3 (0.1-1.0); Neutrophils % 70.6 % (37.0-80.0); Platelet Count 84 K/mm3 (142-424); Red Blood Count 3.44 M/mm3 (4.20-5.40); White Blood Count 4.3 K/mm3 (4.8-10.8)
--- NOTE | 2021-07-06 13:06 | PC.NURSE ---
Spoe with Graciela from [facility] to get VBG
[2021-07-06 13:13] LABS: Chloride 107 mmol/L (98-107); Potassium 4.4 mmoL/L (3.5-5.1); Sodium 142 mmol/L (136-145)
[2021-07-06 13:16] LABS: Alanine Aminotransferase 31 U/L (12-78); Albumin Level 3.7 g/dl (3.5-5.0); Alkaline Phosphatase 275 U/L (38-126); Anion Gap 15.4 mEq/L (5-15); Aspartate Amino Transferase 56 U/L (14-36); Blood Urea Nitrogen 38 mg/dl (7-17); Carbon Dioxide 24 mmol/L (22.0-30.0); Creatinine Clearance Estimated 51 mL/min (50-200); Estimated Glomerular Filt Rate 44 ml/min (>60); GFR (African American) 53 ML/MIN (>60); Globulin 3.6 g/dL (1.3-3.2); Total Protein,Serum 7.3 g/dl (6.3-8.2)
[2021-07-06 13:17] LABS: Ammonia 95 umol/L (9-30); Calcium 9.9 mg/dl (8.4-10.2); Glucose 398 mg/dl (74-100)
[2021-07-06 13:18] LABS: Lactic Acid 3.4 mmol/L (0.7-2.1)
[2021-07-06 13:24] LABS: Acetone, Serum (Rapid) None Detected (None Detect)
[2021-07-06 13:28] LABS: VBG Base Excess -2.5 mmol/L (-2.4-2.3); VBG HCO3 22.5 mmol/L (23-30); VBG Oxygen Saturation 85.6 % (50-70); VBG PCO2 38.5 mmol/L (35-51); VBG PH 7.39 mmol/L (7.31-7.41); VBG PO2 53.7 mmol/L (28-40); VBG Total CO2 23.7 mmol/L (23-27)
--- NOTE | 2021-07-06 14:25 | XR_ITS ---
PROCEDURE INFORMATION: Exam: XR Chest Exam date and time: 07/06/2021 2:25 PM Age: 75 years old Clinical indication: Other: Confusion and SOB TECHNIQUE: Imaging protocol: XR of the chest. Views: 1 view. COMPARISON: CR XR CHEST PORTABLE 01/03/2021 8:57 AM FINDINGS: Lungs: Hypoinflation and mild interstitial prominence. Pleural spaces: No significant pleural effusion. Heart/Mediastinum: Cardiomegaly. Bones/joints: Degenerative change. Postoperative change in the proximal right humerus. Other findings: Obscuration of the left apex by the patient's mandible. IMPRESSION: Cardiomegaly and mild interstitial prominence.
[2021-07-06 14:36] LABS: POC Glucose,Bedside 369 (70-110)
--- NOTE | 2021-07-06 14:53 | HMH.EDGENADL ---
ED Disposition Clinical Impression: Hepatic encephalopathy, Hyperglycemia Disposition: Admitted as Observation Condition on Discharge: Fair Referrals: Earl Cali MD [Primary Care Provider] - - Critical Care Critical Care Time: No Attestation: On 07/06/21, the high probability of a clinically significant, sudden or life threatening deterioration of the following system(s) required my full and direct attention, intervention and personal management. The time I documented below is in addition to time spent performing reported procedures but includes the following listed in this critical care notation. Medical Decision Making - Peng Inquiry Pt receiving controlled substance: No - Lab Data Lab Results 07/06/21 11:55: POC Glucose 431 H* 07/06/21 12:12: VBG pH 7.39, VBG pCO2 38.5, VBG pO2 53.7 H, VBG HCO3 22.5 L, VBG Total CO2 23.7, VBG O2 Saturation 85.6 H, VBG Base Excess -2.5 L 07/06/21 12:34: Urine Color Yellow, Urine Appearance Sl cloudy, Urine pH 6.0, Ur Specific [place] 1.015, Urine Protein Negative, Urine Glucose (UA) 3+, Urine Ketones Negative, Urine Blood Negative, Urine Nitrate Negative, Urine Bilirubin Negative, Urine Urobilinogen 0.2, Ur Leukocyte Esterase Negative, Urine RBC 3-5, Urine WBC Occasional, Ur Squamous Epith Cells Occasional, Urine Bacteria Trace 07/06/21 12:50: WBC 4.3 L, RBC 3.44 L, Hgb 10.5 L, Hct 33.4 L, MCV 97.1, MCH 30.6, MCHC 31.5 L, RDW 16.0, Plt Count 84 L, MPV 11.8 H, Neut % (Auto) 70.6, Lymph % (Auto) 20.8, Mitchell % (Auto) 7.0, Eos % (Auto) 0.9, Baso % (Auto) 0.6, Neut # (Auto) 3.0, Lymph # (Auto) 0.9, Mitchell # (Auto) 0.3, Eos # (Auto) 0.0, Baso # (Auto) 0.0 07/06/21 12:50: Sodium 142, Potassium 4.4, Chloride 107, Carbon Dioxide 24, Anion Gap 15.4 H, BUN 38 H, Creatinine 1.20 H, Estimated Creat Clear 51, Estimated GFR 44 L, Est GFR ( Amer) 53 L, Glucose 398 H, Calcium 9.9, Total Bilirubin 1.0, AST 56 H, ALT 31, Alkaline Phosphatase 275 H, Total Protein 7.3, Albumin 3.7, Globulin 3.6 H, Albumin/Globulin Ratio 1.0 L, Acetone Level None detected 07/06/21 12:50: Lactate 3.4 H 07/06/21 12:50: Ammonia 95 H 07/06/21 14:29: POC Glucose 369 H* Result diagrams: 07/06/21 12:50 07/06/21 12:50 Orders (Tests/Meds): ED MEDICATIONS Generic Name Dose Route Start Last Admin Trade Name Freq PRN Reason Stop Dose Admin Lactulose 20 gm 07/06/21 17:00 07/06/21 15:40 Lactulose 20gm/30ml Udc PO 08/05/21 16:59 20 gm QID FELICIANO Administration Discontinued Medications Generic Name Dose Route Start Last Admin Trade Name Freq PRN Reason Stop Dose Admin Sodium Chloride 500 mls @ 999 mls/hr 07/06/21 13:15 07/06/21 13:09 Sod Chlor 0.9% 1000ml Bag IV 07/06/21 13:45 999 mls/hr .Q31M FELICIANO Administration Insulin Human Lispro 10 unit 07/06/21 15:34 07/06/21 15:40 Humalog 100 Units/Ml 3ml Vial (Ssi) SQ 07/06/21 15:35 10 unit ONCE ONE Administration ORDERS Category Date Time Status PT/INR [Prothrombin Time INR] Stat Lab 07/06/21 15:58 Received Rapid PCR Covid and Flu A/B Stat Lab 07/06/21 15:49 Received Blood Culture Stat Micro 07/06/21 12:50 Received - Physician Consults Physician Consulted: DiSimone Time: 15:45 Reason -: Transfer to another facilty Comment/Response: [facility] is on diversion, they are unable to accept transfer. He would have to be placed on a waiting list, currently wait list is about 2 to 3 days. Discussed with [id number] who discussed with other family members and they would prefer him to be admitted here. Additional Consult: Julia Time: 15:50 Reason -: Admission Comment/Response: Agrees to admit the patient to the hospital. We discussed the patient's clinical information, including history, exam, laboratory and radiology results and ED course. Per hospital procedure, I will write temporary bridge inpatient orders on the patient. Specific orders requested by the admitting physician: Continue lactulose 20g tid. R
--- NOTE | 2021-07-06 15:50 | PC.NURSE ---
SPEAKING TO DR HERNÁNDEZ AT THIS TIME.
[2021-07-06 15:52] LABS: Coronavirus 19, PCR Not Detected (NotDetected); Influenza A, PCR Not Detected (NotDetected); Influenza B, PCR Not Detected (NotDetected)
--- NOTE | 2021-07-06 16:04 | PC.NURSE ---
Notified laborer cook house of admission
[2021-07-06 16:16] LABS: INR 1.06 (0.9-1.1); Prothrombin Time 11.9 seconds (10.1-12.5)
--- NOTE | 2021-07-06 16:42 | PC.NURSE ---
Called report into [facility]
--- NOTE | 2021-07-06 16:52 | PC.NURSE ---
pt arrived to the floor at this time
[2021-07-06 17:00] LABS: Reflex Lactic Add Lactic Reflex
[2021-07-06 17:57] LABS: POC Glucose,Bedside 299 (70-110)
[2021-07-06 19:02] LABS: Lactic Acid Follow Up (RFLX 1) 3.6 mmol/L (0.7-2.1)
[2021-07-06 20:40] LABS: Reflex Lactic (2 hrs) Add Lactic Reflex
[2021-07-06 21:51] LABS: POC Glucose,Bedside 169 (70-110)
--- NOTE | 2021-07-06 21:54 | PC.NURSE ---
No care needed
[2021-07-06 21:58] LABS: Lactic Acid Follow up (RFLX 2) 2.6 mmol/L (0.7-2.1)
[2021-07-07 04:00] VITALS: BP 142/58; PULSE 70; RESP 16; TEMP 37.1; O2SAT 97
[2021-07-07 05:26] LABS: POC Glucose,Bedside 155 (70-110)
[2021-07-07 05:31] VITALS: BMI 36.0
--- NOTE | 2021-07-07 05:35 | PC.NURSE ---
Pt is A/O x3. Pt voiced no c/o of pain, N/V. Pt did have a large soft BM this shift, and stated she felt much better. Pt is a assist x1 to bathroom, during ambulation pt was very unsteady. FSBS have been 169,155.
[2021-07-07 06:18] LABS: Ammonia 63 umol/L (9-30)
[2021-07-07 06:22] LABS: Chloride 113 mmol/L (98-107); Eosinophils # 0.1 K/mm3 (0.0-0.4); Lymphocytes # 1.5 K/mm3 (0.7-4.5); Monocytes # 0.3 K/mm3 (0.1-1.0); Neutrophils # 2.6 K/mm3 (1.8-7.8); Sodium 146 mmol/L (136-145); White Blood Count 4.5 K/mm3 (4.8-10.8)
[2021-07-07 06:23] LABS: Potassium 3.8 mmoL/L (3.5-5.1)
[2021-07-07 06:25] LABS: Alanine Aminotransferase 25 U/L (12-78); Albumin Level 2.9 g/dl (3.5-5.0); Albumin/Globulin Ratio 0.9 (1.1-1.8); Alkaline Phosphatase 144 U/L (38-126); Anion Gap 11.8 mEq/L (5-15); Aspartate Amino Transferase 48 U/L (14-36); Bilirubin,Total 0.8 mg/dl (0.2-1.3); Blood Urea Nitrogen 33 mg/dl (7-17); Calcium 9.1 mg/dl (8.4-10.2); Carbon Dioxide 25 mmol/L (22.0-30.0); Creatinine Clearance Estimated 59 mL/min (50-200); Estimated Glomerular Filt Rate 49 ml/min (>60); GFR (African American) 59 ML/MIN (>60); Globulin 3.2 g/dL (1.3-3.2); Glucose 191 mg/dl (74-100); Total Protein,Serum 6.1 g/dl (6.3-8.2)
[2021-07-07 06:26] LABS: INR 1.07 (0.9-1.1)
[2021-07-07 06:46] LABS: Basophils % 0.9 % (0.1-2.0); Eosinophils % 2.9 % (0.1-12.0); Hematocrit 28.6 % (37.0-47.0); Lymphocytes % 32.1 % (10-50); Mean Corpuscular HGB Conc 32.2 g/dL (31.8-35.4); Mean Corpuscular Hemoglobin 31.1 pg (27.0-31.2); Mean Corpuscular Volume 96.5 fl (81-99); Mean Platelet Volume 11.9 fl (7.4-10.4); Neutrophils % 57.2 % (37.0-80.0); Platelet Count 85 K/mm3 (142-424); Red Blood Count 2.96 M/mm3 (4.20-5.40); Red Cell Distribution Width 16.1 % (11.5-17.5)
[2021-07-07 06:47] LABS: Hemoglobin 9.2 g/dL (12.2-16.2)
[2021-07-07 08:00] VITALS: BP 128/63; PULSE 75; RESP 18; TEMP 37.1; O2SAT 97; O2SAT 99
--- NOTE | 2021-07-07 08:56 | HMH.HP ---
*Admission Date: 07/06/21 *Chief complaint: Confusion *History of present illness: Ms. Pineda is a 75-year-old white female with a history of ELLIOTT and cirrhosis with portal hypertension, esophageal varicese and chronic pulmonary vein thrombosis who is followed by Dr. Chase. She was hospitalized at [facility] in November and at in January with hepatic encephalopathy. Since then, Dr. Chase was successful in getting her Xifaxan approved and she has been doing well. She was brought to the emergency room by her family yesterday because of increased agitation, confusion and blood sugar greater than 400. She was evaluated in the emergency room and her ammonia level was found to be elevated at 95. was contacted for possible transfer but due to the Covid pandemic, their hospital is on diversion therefore she was admitted here and started on IV hydration and continued on her maintenance medications. No obvious source of infection has been identified. She was recently treated for UTI as an outpatient but her current UA is normal except for glucosuria. She had an ultrasound in May which showed no concerns for hepatocellular carcinoma. At the time of my exam this morning, Ms. Pineda does not have much memory of the events of yesterday. Her blood sugar is down to 195 and ammonia down to 65 this morning and her mental status has cleared considerably. Dr. Chase' last consult note from our office chart indicates she was started on Actos plus met but this is not on her current medication list and the patient does not recognize this medication. She states she has been compliant with her lactulose and Xifaxan. Per ER history and her family, she had not had a bowel movement for a couple of days. I have been unable to reach her family this morning to confirm this history. [facility] History Medical History: Reports:: Atherosclerotic Heart Disease, Diabetes Mellitus Type 2, Hyperlipidemia, Hypertension, Lung Disease (ASTHMA) Denies:: Cancer, Internal Pacemaker, MRSA, Seizures *Have you ever received a pneumonia vaccine?: Yes *Have you received a flu vaccine this season?: Yes Other Medical History: Reports: Anemia, Liver Disease (ELLIOTT, Cirrhosis, Portal hypertension, Chronic portal vein thrombosis) Other Surgeries: Yes: Cholecystectomy, Coronary Stent (2000), Hysterectomy-Total, Other (Tonsillectomy, full mouth extraction). No: Pacemaker Amputation: No Fractures: Yes - *Social History Last grade of school completed: Some college Smoking Status: Never smoker Alcohol Intake: never *Occupational Status:: retired Housing: house Household Members: family *Travel in the last 8 weeks: None Family Hx:: Cancer, Heart Attack Review of Systems - Constitutional Reports fatigue, Reports fever(s), Denies body ache(s) - Eyes Reports blurry vision, Reports loss of vision - ENT Denies abnormal hearing, Denies dizziness, Denies headache(s) - *Cardiovascular Reports shortness of breath with activity, Denies chest pain, Denies shortness of breath, Denies generalized swelling, Denies irregular heart rhythm - *Respiratory Denies chest congestion, Denies cough - *Gastrointestinal Denies abdominal pain, Denies coffee ground vomit, Denies vomiting blood, Denies black, tarry stools - *Genitourinary Denies difficulty urinating, Denies painful urination, Denies blood in urine - *Musculoskeletal Reports back pain, Denies radiating pain into limb - Integumentary/Breasts Denies hair loss, Denies change in skin color, Denies rash - *Neurologic Reports confusion, Reports tremor(s) - Psychiatric Reports anxiety, Reports confusion, Denies mood swings - Endocrine Denies cold intolerance, Denies rapid, pounding, or irregular heartbeat - Hematologic/Lymphatic Denies easy bruising - Allergic/Immunologic Denies itchy eyes Meds Home Medications Medication Instructions Recorded Confirmed Type Furosemide [Furosemide 40MG tAB*] 40 mg PO JAVY
[2021-07-07 12:05] LABS: POC Glucose,Bedside 240 (70-110)
--- NOTE | 2021-07-07 14:12 | HMH.PHAVTE ---
[facility] VTE Monitoring - Patient Demographics Admission date: 07/07/21 Report Date: 07/07/21 Time: 14:13 Allergies/Adverse Reactions: Patient Allergies amoxicillin [From AUGMENTIN] Allergy (Intermediate, Verified 07/06/21 16:14) I-RASH clarithromycin [From BIAXIN] Allergy (Intermediate, Verified 07/06/21 16:14) NA-NAUSEA/VOMITING clavulanic acid [From AUGMENTIN] Allergy (Intermediate, Verified 07/06/21 16:14) I-RASH simvastatin Allergy (Unknown, Verified 07/06/21 16:14) Height: 1.52 m Weight: 83.234 kg Patient Problems: Current Active Problems Hepatic encephalopathy (Acute) Non-alcoholic cirrhosis (Chronic) Type 2 diabetes mellitus (Chronic) Hypertension (Chronic) History of ASCVD (Chronic) Hyperglycemia (Acute) Chronic anemia (Acute) Thrombocytopenia (Acute) Portal hypertension (Acute) Portal vein thrombosis (Acute) Hx of esophageal varices (Acute) - VTE Risk Labs: VTE Related Lab Results Hgb 9.2 g/dL (12.2-16.2) L D 07/07/21 05:55 Hct 28.6 % (37.0-47.0) L 07/07/21 05:55 Plt Count 85 K/mm3 (142-424) L 07/07/21 05:55 PT 12.0 seconds (10.1-12.5) 07/07/21 05:55 INR 1.07 (0.9-1.1) 07/07/21 05:55 BUN 33 mg/dl (7-17) H 07/07/21 05:55 Creatinine 1.10 mg/dl (0.52-1.04) H 07/07/21 05:55 Estimated Creat Clear 59 mL/min (50-200) 07/07/21 05:55 VTE Score: 3 VTE Risk Level: Low Risk - Prophylaxis Types of VTE Prophylaxis: TEDS Knee High Location of Applied Device: Bilateral Lower Extremeties (RAJESH HOSE ORDRED)
[2021-07-07 17:03] LABS: POC Glucose,Bedside 281 (70-110)
[2021-07-07 20:00] VITALS: BP 151/88; PULSE 88; RESP 18; TEMP 36.9; O2SAT 99
[2021-07-07 21:01] LABS: POC Glucose,Bedside 358 (70-110)
[2021-07-08 04:00] VITALS: BP 132/54; PULSE 79; RESP 18; TEMP 36.8; O2SAT 98
[2021-07-08 05:00] VITALS: BMI 36.5
--- NOTE | 2021-07-08 05:46 | PC.NURSE ---
Pt has been A&O x 4 during my shift, cooperative with care. Pt has had no complaints or acute episodes thus far. FSBS at bedtime was 358. Pt is x 1 assist to BSC, unsteady upon ambulation. IV infusing per order. Call light in reach.
[2021-07-08 06:59] LABS: Basophils % 0.4 % (0.1-2.0); Eosinophils # 0.1 K/mm3 (0.0-0.4); Eosinophils % 2.5 % (0.1-12.0); Hematocrit 28.1 % (37.0-47.0); Hemoglobin 8.9 g/dL (12.2-16.2); Lymphocytes # 1.4 K/mm3 (0.7-4.5); Lymphocytes % 35.2 % (10-50); Mean Corpuscular HGB Conc 31.7 g/dL (31.8-35.4); Mean Corpuscular Hemoglobin 31.1 pg (27.0-31.2); Mean Corpuscular Volume 98.3 fl (81-99); Mean Platelet Volume 11.3 fl (7.4-10.4); Monocytes # 0.3 K/mm3 (0.1-1.0); Monocytes % 7.1 % (1.7-9.3); Neutrophils # 2.2 K/mm3 (1.8-7.8); Neutrophils % 54.8 % (37.0-80.0); Platelet Count 83 K/mm3 (142-424); Red Blood Count 2.85 M/mm3 (4.20-5.40); Red Cell Distribution Width 15.9 % (11.5-17.5)
[2021-07-08 07:07] LABS: Chloride 111 mmol/L (98-107); Sodium 141 mmol/L (136-145)
[2021-07-08 07:09] LABS: Blood Urea Nitrogen 22 mg/dl (7-17); Creatinine Clearance Estimated 65 mL/min (50-200); Estimated Glomerular Filt Rate 54 ml/min (>60); GFR (African American) 65 ML/MIN (>60)
[2021-07-08 07:10] LABS: Alanine Aminotransferase 24 U/L (12-78); Albumin Level 2.8 g/dl (3.5-5.0); Albumin/Globulin Ratio 0.9 (1.1-1.8); Alkaline Phosphatase 122 U/L (38-126); Aspartate Amino Transferase 48 U/L (14-36); Bilirubin,Total 0.9 mg/dl (0.2-1.3); Calcium 8.7 mg/dl (8.4-10.2); Carbon Dioxide 23 mmol/L (22.0-30.0); Globulin 3.1 g/dL (1.3-3.2); Glucose 289 mg/dl (74-100); Magnesium 1.2 mg/dl (1.6-2.3); Total Protein,Serum 5.9 g/dl (6.3-8.2)
[2021-07-08 07:12] LABS: Ammonia 33 umol/L (9-30)
[2021-07-08 08:00] VITALS: BP 146/51; PULSE 69; RESP 18; TEMP 37; O2SAT 97; O2SAT 99
--- NOTE | 2021-07-08 09:01 | HMH.ACPN2 ---
<Iva Caraballo - Last Filed: 07/08/21 09:01> Internal Medicine - PN: Subj *Date: 07/08/21 *Time: 09:01 Interval history: She is feeling much better. She rested well overnight and has no complaint this morning. She tolerated breakfast well. She is voiding qshift and had BM x 2 yesterday. She is eager for discharge. Exam Vital signs and Labs for Last 24 Hours: Temp Pulse Resp BP Pulse Ox 98.2 F 79 18 132/54 L 98 07/08/21 04:00 07/08/21 04:00 07/08/21 04:00 07/08/21 04:00 07/08/21 04:00 Laboratory Results - last 24 hr 07/07/21 11:56: POC Glucose 240 H 07/07/21 16:40: POC Glucose 281 H 07/07/21 20:12: POC Glucose 358 H* 07/08/21 06:39: WBC 4.0 L, RBC 2.85 L, Hgb 8.9 L, Hct 28.1 L, MCV 98.3, MCH 31.1, MCHC 31.7 L, RDW 15.9, Plt Count 83 L, MPV 11.3 H, Neut % (Auto) 54.8, Lymph % (Auto) 35.2, Schuyler % (Auto) 7.1, Eos % (Auto) 2.5, Baso % (Auto) 0.4, Neut # (Auto) 2.2, Lymph # (Auto) 1.4, Schuyler # (Auto) 0.3, Eos # (Auto) 0.1, Baso # (Auto) 0.0 07/08/21 06:39: Sodium 141, Potassium 4.0, Chloride 111 H, Carbon Dioxide 23, Anion Gap 11.0, BUN 22 H D, Creatinine 1.00, Estimated Creat Clear 65, Estimated GFR 54 L, Est GFR ( Amer) 65, Glucose 289 H, Calcium 8.7, Magnesium 1.2 L, Total Bilirubin 0.9, AST 48 H, ALT 24, Alkaline Phosphatase 122, Total Protein 5.9 L, Albumin 2.8 L, Globulin 3.1, Albumin/Globulin Ratio 0.9 L 07/08/21 06:39: Ammonia 33 H I & O for Last 24 hours: Intake & Output 07/05/21 07/06/21 07/07/21 07/08/21 11:59 11:59 11:59 11:59 Intake Total 1208 / 1208 1935 / 1935 Output Total 550 / 550 Balance 1208 / 1208 1385 / 1385 Weight 183 lb 8 oz 186 lb - Constitutional no acute distress - *Routine HEENT Exam Head: Present: normocephalic, atraumatic ENT: Present: mucous membranes moist - *Routine Respiratory Exam Present: CTA bilaterally - *Routine Cardiovascular Exam Present: RRR - *Routine Abdominal Exam Present: soft, normoactive bowel sounds, obese. Absent: tenderness, distended, guarding, rigid, mass - *Routine Extremities Exam Present: full ROM, pulses intact. Absent: edema, calf tenderness, extremity cold to touch - *Routine Neurological Exam Present: alert, oriented X3, moving all extremities, normal speech Assessment and Plan (1) Hepatic encephalopathy Status: Acute Category: Medical Code(s): K72.90 - Hepatic failure, unspecified without coma (2) Non-alcoholic cirrhosis Status: Chronic Category: Medical Code(s): K74.60 - Unspecified cirrhosis of liver (3) Type 2 diabetes mellitus Status: Chronic Category: Medical Code(s): E11.9 - Type 2 diabetes mellitus without complications (4) Hyperglycemia Status: Acute Category: Medical Code(s): R73.9 - Hyperglycemia, unspecified (5) History of ASCVD Status: Chronic Category: Medical Code(s): Z86.79 - Personal history of other diseases of the circulatory system (6) Hypertension Status: Chronic Category: Medical Code(s): I10 - Essential (primary) hypertension (7) Chronic anemia Status: Acute Category: Medical Code(s): D64.9 - Anemia, unspecified (8) Thrombocytopenia Status: Acute Category: Medical Code(s): D69.6 - Thrombocytopenia, unspecified (9) Portal hypertension Status: Acute Category: Medical Code(s): K76.6 - Portal hypertension (10) Portal vein thrombosis Status: Acute Category: Medical Code(s): I81 - Portal vein thrombosis (11) Hx of esophageal varices Status: Acute Category: Medical Code(s): Z87.19 - Personal history of other diseases of the digestive system - Assessment and plan all Dx Assessment and Plan for all problems:: Per Dr. Cali. <Earl Cali - Last Filed: 07/08/21 17:23> Internal Medicine - PN: Subj *Date: 07/08/21 *Time: 17:17 Exam Vital signs and Labs for Last 24 Hours: Temp Pulse Resp BP Pulse Ox 98.6 F 69 18 146/51 H 97 07/08/21 08:00 07/08/21 08:00 07/08/21 08:
--- NOTE | 2021-07-08 10:59 | HMH.PTEV ---
Physical Therapy Evaluation Rehab PT IP Evaluation Start: 07/08/21 08:07 Freq: ONCE Status: Active Protocol: Document 07/08/21 10:55 CHRISTA (Rec: 07/08/21 10:59 CHRISTA [id number]) Subjective/History History History 76 yowf adm to [facility] with AMS due to hepatic encephalopathy. She reports she feels much betetr today, is independent with all mobility using RW at home, lives with family and has ramp to enter the home. Subjective Subjective Pt reports no c/o this am. Rehab PT IP Eval Objective Appearance Patient Behavior Appropriate Patient Orientation Person,Place,Time Difficulty following instructions none Speech Pattern Clear Ambulation Patient Able to Ambulate Yes Ambulation Observation IP General Gait Pattern Observation No Deviations/Normal Ambulation Distance (feet) 40 Ambulation Assistive Device None Ambulation Ability Supervision/Stand by Balance Ability to Arise Able, uses arms to help Sitting Balance Steady, safe Standing Balance Steady, wide stance Dynamic Sitting Balance Ability Good Dynamic Standing Balance Ability Good Transfers Bed Transfer Ability Independent Chair Transfer Ability Supervision/Stand by Sit to Stand Bed Transfer Ability Supervision/Stand by Sit to Stand Chair Transfer Ability Supervision/Stand by ROM All Extremities PT ROM Status WFL MMT All Extremities PT MMT WFL Rehab PT IP prob,goals,plan Problems Date of Evaluation: 07/08/21 Discharge Plan PT Discharge Plan Pt appears to be at baseline for all mobility at this time and is appropriate to return home once medically stable. G -code Required No Eval Complexity Eval Charge Codes 29778 - Moderate Complexity PHYSICIAN CERTIFICATION: I certify the specified therapy services for Josiane Pineda are required, authorized, and reviewed every 30 days.
[2021-07-08 17:16] LABS: POC Glucose,Bedside 332 (70-110)
--- NOTE | 2021-07-11 15:48 | HMH.DCSUM ---
General - General Admission date:: 07/06/21 <Earl Cali - 08/11/21 09:34> 07/06/21 <Aimee Soriano - 07/11/21 15:52> Discharge date: 07/08/21 <Aimee Soriano - 07/11/21 15:52> HPI HPI: Ms. Pineda is a 75-year-old white female with a history of ELLIOTT and cirrhosis with portal hypertension, esophageal varicese and chronic pulmonary vein thrombosis who is followed by Dr. Chase. She was hospitalized at [facility] in November and at in January with hepatic encephalopathy. Since then, Dr. Chase was successful in getting her Xifaxan approved and she has been doing well. She was brought to the emergency room by her family yesterday because of increased agitation, confusion and blood sugar greater than 400. She was evaluated in the emergency room and her ammonia level was found to be elevated at 95. was contacted for possible transfer but due to the Covid pandemic, their hospital is on diversion therefore she was admitted here and started on IV hydration and continued on her maintenance medications. No obvious source of infection has been identified. She was recently treated for UTI as an outpatient but her current UA is normal except for glucosuria. She had an ultrasound in May which showed no concerns for hepatocellular carcinoma. At the time of my exam this morning, Ms. Pineda does not have much memory of the events of yesterday. Her blood sugar is down to 195 and ammonia down to 65 this morning and her mental status has cleared considerably. Dr. Chase' last consult note from our office chart indicates she was started on Actos plus met but this is not on her current medication list and the patient does not recognize this medication. She states she has been compliant with her lactulose and Xifaxan. Per ER history and her family, she had not had a bowel movement for a couple of days. I have been unable to reach her family this morning to confirm this history. <Aimee Soriano - 07/11/21 15:52> Hospital Course Hospital Course: It was felt the patient symptoms were likely due to both hepatic encephalopathy and hyperglycemia. She responded to treatment with improvement in her blood sugar and ammonia level and her mental status began clearing. Her meld score was 9. She was continued on IV fluids and her labs were serially monitored. She was continued on sliding scale insulin, lactulose, and Xifaxan. By 07/08/2021, she was feeling much better and had rested well with no complaints. She was eager to go home and celebrate her birthday and finish celebrating Luis A. Her ammonia level was down to 33 and her mental status was back to baseline. She had a follow-up appointment scheduled with Dr. Chase in [place] on 07/09/2021 and she was going to keep this appointment. Physical therapy was consulted before discharge and they felt the patient was appropriate to return home. She was discharged. <Aimee Soriano - 07/11/21 15:52> Objective Vital signs: Temp Pulse Resp BP Pulse Ox 98.6 F 69 18 146/51 H 97 07/08/21 08:00 07/08/21 08:00 07/08/21 08:00 07/08/21 08:00 07/08/21 08:00 <Earl Cali - 08/11/21 09:34> Temp Pulse Resp BP Pulse Ox 98.6 F 69 18 146/51 H 97 07/08/21 08:00 07/08/21 08:00 07/08/21 08:00 07/08/21 08:00 07/08/21 08:00 <Aimee Soriano - 07/11/21 15:52> Narrative: - Constitutional no acute distress - *Routine HEENT Exam Head: Present: normocephalic, atraumatic ENT: Present: mucous membranes moist - *Routine Respiratory Exam Present: CTA bilaterally - *Routine Cardiovascular Exam Present: RRR - *Routine Abdominal Exam Present: soft, normoactive bowel sounds, obese. Absent: tenderness, distended, guarding, rigid, mass - *Routine Extremities Exam Present: full ROM, pulses intact. Absent: edema, calf tenderness, extremity cold to touch - *Routine Neurological Exam Present: alert, oriented X3, moving
== END 2021-07-08 14:15 | disposition home or self-care (01) | DRG 443 ==
LOC: ER 16:04 → 2ND 07-07 07:06 → ICU 07-07 12:57
PROVIDERS: Admitting Provider Family Medicine; Emergency Provider Emergency Medicine; PCP Family Medicine; Visit Provider Family Medicine
DX: K72.91 Hepatic failure, unspecified with coma (principal); E11.65 Type 2 diabetes mellitus with hyperglycemia; K76.6 Portal hypertension; I10 Essential (primary) hypertension; Z79.4 Long term (current) use of insulin; K74.60 Unspecified cirrhosis of liver; D69.6 Thrombocytopenia, unspecified; I25.10 Atherosclerotic heart disease of native coronary artery without angina pectoris; D64.89 Other specified anemias; J45.909 Unspecified asthma, uncomplicated; Z95.5 Presence of coronary angioplasty implant and graft; K75.81 Nonalcoholic steatohepatitis (NASH); Z86.718 Personal history of other venous thrombosis and embolism
CPT/HCPCS: 36415; 71045; 80053; 81001; 82009; 82140; 82803; 82962; 83605; 83735; 85025; 85610; 87040; 96365; 96375; 97162; 99281; 99284; C9803; U0003; U0005

== ENCOUNTER → 2021-08-08 11:56 | Outpatient (CLI) | payer MEDICARE, MEDICAID, SELFPAY ==
[2021-08-08 12:46] LABS: Ammonia 45 umol/L (9-30)
== END ==
PROVIDERS: PCP Family Medicine; Visit Provider Nurse Practitioner Family
DX: K75.81 Nonalcoholic steatohepatitis (NASH) (principal); K74.60 Unspecified cirrhosis of liver; K72.90 Hepatic failure, unspecified without coma; I85.00 Esophageal varices without bleeding; K76.6 Portal hypertension; I81 Portal vein thrombosis; R18.8 Other ascites
CPT/HCPCS: 36415; 82140

== ENCOUNTER → 2021-08-26 14:07 | Outpatient (CLI) | payer MEDICARE, MEDICAID, SELFPAY ==
[2021-08-26 14:52] LABS: Ammonia 54 umol/L (9-30)
== END ==
PROVIDERS: PCP Family Medicine; Visit Provider Internal Medicine Gastroenterology
DX: K72.90 Hepatic failure, unspecified without coma (principal); E72.20 Disorder of urea cycle metabolism, unspecified
CPT/HCPCS: 36415; 82140

== ENCOUNTER 2021-09-28 12:57 | Inpatient (IN) | payer MEDICARE, MEDICAID, SELFPAY ==
[2021-09-28] VITALS (26 sets, daily range): BP systolic 102–154; BP diastolic 47–80; PULSE 58–78; RESP 14–20; TEMP 32.3–36.8; O2SAT 97–100; BMI 37.8; BMI 20.4; BMI 32.8
[2021-09-28 13:17] LABS: POC Glucose,Bedside 177 (70-110)
--- NOTE | 2021-09-28 13:19 | XR_ITS ---
PROCEDURE INFORMATION: Exam: XR Chest Exam date and time: 09/28/2021 1:22 PM Age: 76 years old Clinical indication: Other: AMS TECHNIQUE: Imaging protocol: XR of the chest. Views: 1 view. COMPARISON: CR XR CHEST PORTABLE 07/06/2021 2:47 PM FINDINGS: Lungs: No consolidation. Pleural spaces: No pleural effusion. No pneumothorax. Heart/Mediastinum: The heart is upper limits of normal in size. Bones/joints: There are postop changes from ORIF a proximal right humeral fracture. IMPRESSION: 1. There is no evidence of active pulmonary disease. 2. A followup PA and lateral radiograph is recommended when the patient is clinically able.
[2021-09-28 13:29] LABS: Basophils % 0.2 % (0.1-2.0); Chloride 116 mmol/L (98-107); Eosinophils # 0.1 K/mm3 (0.0-0.4); Eosinophils % 1.5 % (0.1-12.0); Lymphocytes # 0.6 K/mm3 (0.7-4.5); Lymphocytes % 14.8 % (10-50); Mean Corpuscular Hemoglobin 30.8 pg (27.0-31.2); Mean Corpuscular Volume 102.5 fl (81-99); Mean Platelet Volume 16.8 fl (7.4-10.4); Monocytes # 0.2 K/mm3 (0.1-1.0); Monocytes % 5.7 % (1.7-9.3); Neutrophils % 77.8 % (37.0-80.0); Red Cell Distribution Width 17.8 % (11.5-17.5); Sodium 142 mmol/L (136-145); White Blood Count 3.8 K/mm3 (4.8-10.8)
[2021-09-28 13:30] LABS: Potassium 5.2 mmoL/L (3.5-5.1)
--- NOTE | 2021-09-28 13:30 | CT_ITS ---
PROCEDURE INFORMATION: Exam: CT Head Without Contrast Exam date and time: 09/28/2021 1:16 PM Age: 76 years old Clinical indication: Altered mental status/memory loss; Confusion or disorientation; Additional info: Confusion// gfr too low for contrast study TECHNIQUE: Imaging protocol: Computed tomography of the head without contrast. Radiation optimization: All CT scans at this facility use at least one of these dose optimization techniques: automated exposure control; mA and/or kV adjustment per patient size (includes targeted exams where dose is matched to clinical indication); or iterative reconstruction. Other technique: STROKE PROTOCOL was implemented. COMPARISON: CT HEAD/BRAIN WO CON 01/03/2021 10:29 AM FINDINGS: Brain: The brain demonstrates mild diffuse volume loss. There is some white matter hypodensity most consistent with chronic small vessel ischemic change. Cerebral ventricles: The ventricles and CSF normal in size for age. Paranasal sinuses: There is mucoperiosteal reaction in the left maxillary sinus. Mastoid air cells: Visualized mastoid air cells are well aerated. Bones/joints: There are degenerative changes of the temporomandibular joints. Soft tissues: Unremarkable. Dental: The mandible and maxilla are edentulous. IMPRESSION: 1. Atrophy and the sequela of prior small vessel ischemia. 2. There is no acute intracranial abnormality. ASSESSMENT: ASPECTS ([place] Stroke Program Early CT Score) is 10.
--- NOTE | 2021-09-28 13:30 | ECG_ITS ---
APPROVED REPORT Exam: Resting ECG HR:57 bpm ECG Measurements Heart Rate 57 AXES ID 196 P 55 QRSd 167 QRS 35 QT 535 T -55 QTc 528 Conclusion SINUS BRADYCARDIA RIGHT BUNDLE BRANCH BLOCK [120+ ms QRS DURATION, UPRIGHT V1, 40+ ms S IN I/aVL/V4/V5/V6] MODERATE T-WAVE ABNORMALITY, CONSIDER LATERAL ISCHEMIA [-0.1+ mV T-WAVE IN I/aVL/V5/V6] MODERATE T-WAVE ABNORMALITY, CONSIDER INFERIOR ISCHEMIA [-0.1+ mV T-WAVE IN II/aVF] ABNORMAL ECG UNCONFIRMED REPORT Electronically signed by : Dmitriy Damian MD 09/29/2021 20:17:07
[2021-09-28 13:32] LABS: Alanine Aminotransferase 46 U/L (12-78); Albumin Level 3.2 g/dl (3.5-5.0); Alkaline Phosphatase 235 U/L (38-126); Anion Gap 13.2 mEq/L (5-15); Aspartate Amino Transferase 96 U/L (14-36); Blood Urea Nitrogen 49 mg/dl (7-17); Carbon Dioxide 18 mmol/L (22.0-30.0); Creatinine Clearance Estimated 21 mL/min (50-200); Estimated Glomerular Filt Rate 27 ml/min (>60); GFR (African American) 33 ML/MIN (>60); Globulin 3.2 g/dL (1.3-3.2); Total Protein,Serum 6.4 g/dl (6.3-8.2)
[2021-09-28 13:33] LABS: Calcium 8.8 mg/dl (8.4-10.2); Glucose 151 mg/dl (74-100)
--- NOTE | 2021-09-28 13:43 | HMH.ITSTN ---
GFR came back and is 27. I advised nurse in ER we can not do CTA due to low GFR
[2021-09-28 13:45] LABS: Troponin I 0.14 ng/ml (0.00-0.034)
[2021-09-28 13:54] LABS: Hematocrit 18.5 % (37.0-47.0); Hemoglobin 5.5 g/dL (12.2-16.2); Platelet Count 42 K/mm3 (142-424)
--- NOTE | 2021-09-28 14:00 | PC.NURSE ---
critical lab results given to dr Lagunas at 1356 h/h 5.5/18.5 plt 42
--- NOTE | 2021-09-28 14:06 | HMH.EDGENADL ---
ED Disposition Clinical Impression: Hepatic encephalopathy Anemia Qualifiers: Anemia type: unspecified type Qualified Code(s): D64.9 - Anemia, unspecified GI bleed Qualifiers: GI bleed type/associated pathology: unspecified gastrointestinal hemorrhage type Qualified Code(s): K92.2 - Gastrointestinal hemorrhage, unspecified Disposition: Admitted As Inpatient Condition on Discharge: [facility] - Critical Care Critical Care Time: No Attestation: On 09/28/21, the high probability of a clinically significant, sudden or life threatening deterioration of the following system(s) required my full and direct attention, intervention and personal management. The time I documented below is in addition to time spent performing reported procedures but includes the following listed in this critical care notation. Medical Decision Making - Medical Records Medical records reviewed: Yes: I reviewed the patient's medical records. - Peng Inquiry Pt receiving controlled substance: No Vital Signs: 09/28/21 12:58 09/28/21 13:41 09/28/21 14:01 Temperature 98.2 F Temperature Source Oral Pulse Rate 62 62 Pulse Rate [Left Radial] 58 L Respiratory Rate 20 15 16 Blood Pressure 138/61 134/60 Blood Pressure [Right Arm] 134/60 Blood Pressure Mean 72 71 Blood Pressure Mean [Right Arm] 84 Blood Pressure Source [Right Arm] Automatic Cuff Blood Pressure Position [Right Arm] Sitting 02 Sat by Pulse Oximetry 100 100 100 Oxygen Delivery Method Room Air 09/28/21 14:30 09/28/21 15:01 09/28/21 15:31 Temperature Temperature Source Pulse Rate 60 63 63 Pulse Rate [Left Radial] Respiratory Rate 16 15 14 Blood Pressure 146/59 H 108/60 L 150/54 H Blood Pressure [Right Arm] Blood Pressure Mean 70 76 71 Blood Pressure Mean [Right Arm] Blood Pressure Source [Right Arm] Blood Pressure Position [Right Arm] 02 Sat by Pulse Oximetry 100 100 99 Oxygen Delivery Method 09/28/21 16:01 09/28/21 16:31 09/28/21 17:00 Temperature Temperature Source Pulse Rate 64 61 62 Pulse Rate [Left Radial] Respiratory Rate 16 16 14 Blood Pressure 146/55 H 133/49 L 145/57 H Blood Pressure [Right Arm] Blood Pressure Mean 85 77 Blood Pressure Mean [Right Arm] Blood Pressure Source [Right Arm] Blood Pressure Position [Right Arm] 02 Sat by Pulse Oximetry 100 100 100 Oxygen Delivery Method 09/28/21 18:32 09/28/21 18:35 Temperature 98.2 F Temperature Source Pulse Rate 60 Pulse Rate [Left Radial] Respiratory Rate 16 Blood Pressure 140/55 L 140/55 L Blood Pressure [Right Arm] Blood Pressure Mean 83 Blood Pressure Mean [Right Arm] Blood Pressure Source [Right Arm] Blood Pressure Position [Right Arm] 02 Sat by Pulse Oximetry Oxygen Delivery Method Room Air - Lab Data Lab Results 09/28/21 13:10: POC Glucose 177 H 09/28/21 13:19: WBC 3.8 L, RBC 1.80 L*, Hgb 5.5 L*, Hct 18.5 L*, MCV 102.5 H, MCH 30.8, MCHC 30.0 L, RDW 17.8 H, Plt Count 42 L*, MPV 16.8 H, Neut % (Auto) 77.8, Lymph % (Auto) 14.8, [place] % (Auto) 5.7, Eos % (Auto) 1.5, Baso % (Auto) 0.2, Neut # (Auto) 3.0, Lymph # (Auto) 0.6 L, [place] # (Auto) 0.2, Eos # (Auto) 0.1, Baso # (Auto) 0.0 09/28/21 13:19: Sodium 142, Potassium 5.2 H, Chloride 116 H, Carbon Dioxide 18 L, Anion Gap 13.2, BUN 49 H, Creatinine 1.80 H, Estimated Creat Clear 21, Estimated GFR 27 L, Est GFR ( Amer) 33 L, Glucose 151 H, Calcium 8.8, Total Bilirubin 1.0, AST 96 H, ALT 46, Alkaline Phosphatase 235 H, Troponin I 0.14 H, Total Protein 6.4, Albumin 3.2 L, Globulin 3.2, Albumin/Globulin Ratio 1.0 L 09/28/21 13:19: Ammonia 176 H 09/28/21 13:19: Lipase 169 09/28/21 13:40: Urine Color Yellow, Urine Appearance Clear, Urine pH 6.0, Ur Specific [place] 1.015, Urine Protein Negative, Urine Glucose (UA) Negative, Urine Ketones Negative, Urine Blood Negative, Urine Nitrate Negative, Urine Bilirubin Negative, Urine Urobilinogen 0.2, Ur Leukocyte Esterase Negativ
[2021-09-28 14:08] LABS: Microscopic, Urine URINE MICROSCOPIC (MICROSCOPIC)
--- NOTE | 2021-09-28 14:24 | PC.NURSE ---
Pt in room, in bed, DIL in room with pt
[2021-09-28 14:32] LABS: Lipase 169 U/L (23-300)
[2021-09-28 14:32] LABS: Appearance,Urine CLEAR (Clear); Bilirubin,Urine Negative (Negative); Blood, Urine Negative (Negative); Color,Urine YELLOW (Yellow); Glucose,Urine (UA) Negative (Negative); Ketones,Urine Negative (Negative); Leukocyte Esterase,Urine Negative (Negative); Nitrate,Urine Negative (Negative); Protein,Urine Negative (Negative); Specific Gravity, Urine 1.015 (1.005-1.030); Urobilinogen,Urine 0.2 EU/dl (0.2)
[2021-09-28 14:33] LABS: Ammonia 176 umol/L (9-30)
--- NOTE | 2021-09-28 14:53 | PC.NURSE ---
Paged cotton program technician dr eden Cali
--- NOTE | 2021-09-28 14:56 | PC.NURSE ---
talking to Melisa
[2021-09-28 15:19] LABS: Occult Blood,Stool Positive (Negative)
--- NOTE | 2021-09-28 15:41 | PC.NURSE ---
Went into room with RN. Patient was on bed sears. Patient was cleaned up and bed has been changed.
[2021-09-28 15:46] LABS: WBC,Urine Occasional #/hpf (0-3)
[2021-09-28 15:47] LABS: Yeast,Urine 3+ /lpf
[2021-09-28 15:59] LABS: Lactic Acid 3.4 mmol/L (0.7-2.1)
--- NOTE | 2021-09-28 16:38 | PC.NURSE ---
lab to get troponin
--- NOTE | 2021-09-28 16:41 | PC.NURSE ---
Addendum entered by Marleen Rangel RN 09/28/21 16:41: MD on phone with Dr Dumont at this time Original Note: On phone with Dr Dumont at this time.
--- NOTE | 2021-09-28 16:47 | PC.NURSE ---
Pt in bed waiting on admission
[2021-09-28 17:46] LABS: Influenza A, PCR Not Detected (NotDetected); Influenza B, PCR Not Detected (NotDetected)
[2021-09-28 18:07] LABS: Coronavirus 19, PCR Detected (NotDetected)
[2021-09-28 18:28] LABS: Troponin I 0.12 ng/ml (0.00-0.034)
--- NOTE | 2021-09-28 19:03 | PC.NURSE ---
attempted to contact PTs POA to obtain consent for blood
[2021-09-28 19:36] LABS: Reflex Lactic Add Lactic Reflex
--- NOTE | 2021-09-28 19:43 | PC.NURSE ---
Dr. Vogt on phone with re: transfer
--- NOTE | 2021-09-28 19:49 | PC.NURSE ---
ED spoke with ED , patient has been placed on waiting list
--- NOTE | 2021-09-28 20:31 | PC.NURSE ---
reported pts temp to Dr. Dumont. states we can go ahead with blood administration. Warm patient. Elijah hector on.
[2021-09-28 21:40] LABS: Lactic Acid Follow Up (RFLX 1) 3.8 mmol/L (0.7-2.1)
--- NOTE | 2021-09-28 22:49 | PC.NURSE ---
TEMP RISING D/T ACTIVELY WARMING PT WITH SERAFIN ARIAS. AWARE
[2021-09-28 23:10] LABS: POC Glucose,Bedside 123 (70-110)
[2021-09-28 23:21] LABS: Reflex Lactic (2 hrs) Add Lactic Reflex
[2021-09-28 23:53] LABS: Lactic Acid Follow up (RFLX 2) 3.3 mmol/L (0.7-2.1)
[2021-09-29] VITALS (47 sets, daily range): BP systolic 96–148; BP diastolic 36–79; PULSE 60–88; RESP 14–19; TEMP 32.6–36.4; O2SAT 92–99; BMI 32.8
--- NOTE | 2021-09-29 00:45 | PC.NURSE ---
late entry - called ED to see if pt received any medications while in ED. Several things were ordered and it does not look like it was given and reordered. ED RN states from what she can tell it does not look like it was given, that they will try to get in touch with day shift RN who had pt.
--- NOTE | 2021-09-29 02:06 | PC.NURSE ---
still actively warming pt with franki paws. temp slowly increasing.
--- NOTE | 2021-09-29 04:43 | PC.NURSE ---
Pts temp is now 97.9 F. Rosa paws removed. Pt covered in blankets. Call light in reach.
[2021-09-29 05:08] LABS: Hematocrit 21.3 % (37.0-47.0); Hemoglobin 6.5 g/dL (12.2-16.2)
--- NOTE | 2021-09-29 05:17 | PC.NURSE ---
Paged Dr. Dumont at this time for critical hemoglobin of 6.[address] depression. Orders received for CBC, CMP, troponin, and ammonia level for 0600. No other orders at this time.
[2021-09-29 06:04] LABS: Alanine Aminotransferase 38 U/L (12-78); Albumin Level 2.7 g/dl (3.5-5.0); Alkaline Phosphatase 158 U/L (38-126); Anion Gap 12.5 mEq/L (5-15); Aspartate Amino Transferase 76 U/L (14-36); Bilirubin,Total 0.9 mg/dl (0.2-1.3); Blood Urea Nitrogen 50 mg/dl (7-17); Carbon Dioxide 16 mmol/L (22.0-30.0); Chloride 119 mmol/L (98-107); Creatinine Clearance Estimated 43 mL/min (50-200); Estimated Glomerular Filt Rate 34 ml/min (>60); GFR (African American) 41 ML/MIN (>60); Globulin 2.6 g/dL (1.3-3.2); Potassium 4.5 mmoL/L (3.5-5.1); Sodium 143 mmol/L (136-145); Total Protein,Serum 5.3 g/dl (6.3-8.2)
[2021-09-29 06:12] LABS: Glucose 78 mg/dl (74-100)
[2021-09-29 06:16] LABS: Troponin I 0.09 ng/ml (0.00-0.034)
--- NOTE | 2021-09-29 07:38 | PC.NURSE ---
Addendum entered by Cheryl Simpson RN 09/29/21 07:49: On tele pt has a first degree w/ st depression and t wave inversion. Dr. Dumont aware that st depression seems to be worsening. orders received for troponin with AM labs. Original Note: late entry - Pt alert but not oriented. Pt confused and not answering orientation questions at this time. Verbal consent for blood products obtained via phone call to Nathaniel (pts kids) with Mónica Nicholson RN. At beginning of my shift pt had a rectal temp of 90.2. Dr. Dumont notified. Pt also ordered to get blood and platelets. Per MD, warm pt and go ahead with transfusions. Dr. Dumont also aware of pts lactic acid. IF fluid bolus not done in ED, go ahead with fluid bolus per Dr. Dumont. Per ER MD documentation, it states pt received fluid bolus in ED. Warmed pt using franki paws. Was able to increase temp to 97.9 with franki paws. Pt tolerated transfusions without adverse reaction at this time. Pt also received antibiotics and is on an octreotide drip. Pt did not eat or drink overnight. Pt had 3 large diarrhea BMs last night. Strong odor but not visible blood. Brown in color. [place] cath draining yellow urine. Pt has a surgery consult this AM. Pt will occasionally try to get out of bed. Bed alarm on for safety. Call light in reach.
[2021-09-29 08:13] LABS: POC Glucose,Bedside 71 (70-110)
[2021-09-29 08:36] LABS: Ammonia 50 umol/L (9-30)
--- NOTE | 2021-09-29 09:22 | HMH.HP ---
*Admission Date: 09/28/21 *Chief complaint: Confusion *History of present illness: Ms. Pineda is a 76-year-old white female with a history of ELLIOTT/cirrhosis, type 2 diabetes mellitus, hypertension, and ASCVD. She has had previous admissions with hepatic encephalopathy and has followed closely with Dr. Chase over the past 5 years. She has also been referred to the [facility] liver transplant service. She is known to have portal hypertension, portal vein thrombosis and esophageal varices. History is obtained from the ER record as I have been unable to contact her family. According to the ER note, she was in her usual state of health on Thursday evening and then yesterday morning she was noted to be confused and was brought to the ER. Her ammonia level was elevated at 176 and she was found to be anemic with a hemoglobin of 5.5 and platelet count of 40,000. Stool was heme positive. No history of nausea, vomiting, or hematemesis. She was incidentally found to be Covid positive although no history of respiratory symptoms. CT scan of the head was unremarkable and chest x-ray shows no acute findings. O2 sats have been normal on room air. She was admitted with IV fluids and continued on her lactulose. She was also started on octreotide for empiric treatment of possible bleeding from her esophageal varices. She received 2 units of packed red cells overnight. Her post transfusion Hgb was 6.5. She is hemodynamically stable but remains confused. [facility] History Medical History: Reports:: Atherosclerotic Heart Disease, Diabetes Mellitus Type 2, Hyperlipidemia, Hypertension, Lung Disease (ASTHMA) Denies:: Cancer, Diabetes Mellitus Type 1, Internal Pacemaker, MRSA, Seizures *Have you ever received a pneumonia vaccine?: No (unknown, pt confused) *Have you received a flu vaccine this season?: No (unknown, pt confused) Other Medical History: Reports: Anemia, Liver Disease (ELLIOTT/ cirrhosis, portal hypertension), Other (Esophageal varicese, Portal vein thrombosis) Other Surgeries: Yes: Cholecystectomy, Coronary Stent (2000), Hysterectomy-Total, Other (Tonsillectomy, full mouth extraction). No: Pacemaker Amputation: No Fractures: Yes - *Social History Smoking Status: Never smoker Alcohol Intake: never *Occupational Status:: retired, disabled Housing: house Household Members: children *Travel in the last 8 weeks: None Family Hx:: Coronary Artery Disease, Diabetes Review of Systems - Review of Systems Review of systems:: unable to obtain Meds Home Medications Medication Instructions Recorded Confirmed Type Furosemide [Furosemide 40MG tAB*] 40 mg PO DAILYP PRN 09/24/18 09/28/21 History Glimepiride 4 mg PO DAILY 09/24/18 09/28/21 History Insulin Glargine,Hum.rec.anlog 65 units SQ BID 09/24/18 09/28/21 History [Steven Leung] Metformin HCl 500 mg PO DAILY 09/24/18 09/28/21 History Spironolactone [Aldactone 25mg 25 mg PO Q48H 11/17/20 09/28/21 History Tab] Tramadol HCl [Tramadol 50mg 50 mg PO TIDP PRN 11/17/20 09/28/21 History Tab] Gabapentin [Gabapentin 100mg Cap] 100 mg PO HS 01/03/21 09/28/21 History Magnesium Oxide 400 mg PO HS 07/06/21 09/28/21 History Pantoprazole Sodium 40 mg PO DAILY 07/06/21 09/28/21 History Propranolol HCl 10 mg PO BID 07/06/21 09/28/21 History Rifaximin [Xifaxan 550mg Tablet] 550 mg PO BID 07/06/21 09/28/21 History Albuterol Sulfate [Albuterol 1 puff IH Q6HP PRN 09/29/21 09/29/21 History Sulfate Hfa] Lactulose [Enulose] 30 gm PO TID 09/29/21 09/29/21 History Allergies Allergy/AdvReac Type Severity Reaction Status Date / Time amoxicillin [From AUGMENTIN] Allergy Intermediate I-RASH Verified 07/06/21 16:14 clarithromycin [From BIAXIN] Allergy Intermediate NA-NAUSEA/V Verified 07/06/21 16:14 OMITING clavulanic acid Allergy Intermediate I-RASH Verified 07/06/21 16:14 [From AUGMENTIN] simvastatin Allergy Unknown Verified 07/06/21 16:14 Exam Vital signs and Labs for Last 24 Hours: Te
--- NOTE | 2021-09-29 09:31 | HMH.GSCON ---
*Admission Date: 09/28/21 *Reason for consult:: Gastrointestinal hemorrhage *History of present illness: This is a 76-year-old female seen in consultation from her primary service for evaluation regarding gastrointestinal hemorrhage. She presented to the emergency department yesterday with increased confusion. Laboratory evaluation confirmed severe anemia. No definitive hematemesis or melena. Reportedly, she has a history of gastrointestinal hemorrhage secondary to esophageal varices. Forwarded from emergency department evaluation: General Adult HPI - General Stated complaint: confusion, runny nose, dizzines, pale, weakness Time Seen by Provider: 09/28/21 14:06 Mode of Arrival: Ambulatory Source of Information: Patient, Relative Limitations: No Limitations - History of Present Illness HPI narrative: 76-year-old female with past medical history of cirrhosis on lactulose who is presenting to the ED with generalized confusion. Patient was well last night per patient's daughter. This morning she was more confused. She has not recently had a bowel movement. Family was also noticed that she appears to be more pale. She has not had any vomiting episodes. They have not noticed any blood or dark bowel movements. She denies any chest pain, shortness of air. She denies any fevers at home. She does not have any focal weakness or sensory changes. They have no other concerns. She has been compliant with her medications. Review of Systems - Review of Systems Review of systems:: unable to obtain [facility] History Medical History: Reports:: Atherosclerotic Heart Disease, Diabetes Mellitus Type 2, Hyperlipidemia, Hypertension, Lung Disease (ASTHMA) Denies:: Cancer, Diabetes Mellitus Type 1, Internal Pacemaker, MRSA, Seizures *Have you ever received a pneumonia vaccine?: No (unknown, pt confused) *Have you received a flu vaccine this season?: No (unknown, pt confused) Other Medical History: Reports: Anemia, Liver Disease Other Surgeries: Yes: Cholecystectomy, Coronary Stent (2000), Hysterectomy-Total, Other (Tonsillectomy, full mouth extraction). No: Pacemaker Amputation: No Fractures: Yes - *Social History Smoking Status: Never smoker Alcohol Intake: never *Occupational Status:: retired, disabled Housing: house Household Members: children *Travel in the last 8 weeks: None Family Hx:: Unable to obtain Meds Home Medications Medication Instructions Recorded Confirmed Type Furosemide [Furosemide 40MG tAB*] 40 mg PO DAILYP PRN 09/24/18 09/28/21 History Glimepiride 4 mg PO DAILY 09/24/18 09/28/21 History Insulin Glargine,Hum.rec.anlog 65 units SQ BID 09/24/18 09/28/21 History [Toujeo Solostar] Metformin HCl 500 mg PO DAILY 09/24/18 09/28/21 History Spironolactone [Aldactone 25mg 25 mg PO Q48H 11/17/20 09/28/21 History Tab] Tramadol HCl [Tramadol 50mg 50 mg PO TIDP PRN 11/17/20 09/28/21 History Tab] Gabapentin [Gabapentin 100mg Cap] 100 mg PO HS 01/03/21 09/28/21 History Magnesium Oxide 400 mg PO HS 07/06/21 09/28/21 History Pantoprazole Sodium 40 mg PO DAILY 07/06/21 09/28/21 History Propranolol HCl 10 mg PO BID 07/06/21 09/28/21 History Rifaximin [Xifaxan 550mg Tablet] 550 mg PO BID 07/06/21 09/28/21 History Lactulose [Lactulose 20gm/30ml 20 gm PO TID 07/07/21 09/28/21 History Oral Soln] Allergies Allergy/AdvReac Type Severity Reaction Status Date / Time amoxicillin [From AUGMENTIN] Allergy Intermediate I-RASH Verified 07/06/21 16:14 clarithromycin [From BIAXIN] Allergy Intermediate NA-NAUSEA/V Verified 07/06/21 16:14 OMITING clavulanic acid Allergy Intermediate I-RASH Verified 07/06/21 16:14 [From AUGMENTIN] simvastatin Allergy Unknown Verified 07/06/21 16:14 Exam Vital signs and Labs for Last 24 Hours: Temp Pulse Resp BP Pulse Ox 96.2 F L 77 18 118/39 L 99 09/29/21 09:00 09/29/21 0
[2021-09-29 09:39] LABS: Basophils % 0.2 % (0.1-2.0); Eosinophils # 0.1 K/mm3 (0.0-0.4); Eosinophils % 2.9 % (0.1-12.0); Hematocrit 22.1 % (37.0-47.0); Lymphocytes # 0.6 K/mm3 (0.7-4.5); Lymphocytes % 14.3 % (10-50); Mean Corpuscular HGB Conc 31.6 g/dL (31.8-35.4); Mean Platelet Volume 13.8 fl (7.4-10.4); Monocytes # 0.4 K/mm3 (0.1-1.0); Monocytes % 9.1 % (1.7-9.3); Neutrophils # 3.3 K/mm3 (1.8-7.8); Neutrophils % 73.5 % (37.0-80.0); Platelet Count 70 K/mm3 (142-424); Red Blood Count 2.33 M/mm3 (4.20-5.40); Red Cell Distribution Width 17.8 % (11.5-17.5); White Blood Count 4.5 K/mm3 (4.8-10.8)
--- NOTE | 2021-09-29 10:26 | P.CONPHA_ITS ---
[facility] Pharmacy VTE Monitoring - Patient Demographics Admission date: 09/29/21 Report Date: 09/29/21 Time: 10:26 Allergies/Adverse Reactions: Patient Allergies amoxicillin [From AUGMENTIN] Allergy (Intermediate, Verified 07/06/21 16:14) I-RASH clarithromycin [From BIAXIN] Allergy (Intermediate, Verified 07/06/21 16:14) NA-NAUSEA/VOMITING clavulanic acid [From AUGMENTIN] Allergy (Intermediate, Verified 07/06/21 16:14) I-RASH simvastatin Allergy (Unknown, Verified 07/06/21 16:14) Height: 1.6 m Weight: 84.141 kg Patient Problems: Current Active Problems Hepatic encephalopathy (Acute) Type 2 diabetes mellitus (Chronic) Hypertension (Chronic) Thrombocytopenia (Acute) Hx of esophageal varices (Acute) Anemia (Acute) GI bleed (Acute) - VTE Risk Labs: VTE Related Lab Results Hgb 7.0 g/dL (12.2-16.2) L 09/29/21 06:40 Hct 22.1 % (37.0-47.0) L 09/29/21 06:40 Plt Count 70 K/mm3 (142-424) L D 09/29/21 06:40 BUN 50 mg/dl (7-17) H 09/29/21 04:55 Creatinine 1.50 mg/dl (0.52-1.04) H 09/29/21 04:55 Estimated Creat Clear 43 mL/min (50-200) 09/29/21 04:55 VTE Score: 5 VTE Risk Level: Low Risk - Prophylaxis Types of VTE Prophylaxis: TEDS Knee High Location of Applied Device: Bilateral Lower Extremeties (RAJESH HOSE ORDERED)
[2021-09-29 11:41] LABS: POC Glucose,Bedside 198 (70-110)
[2021-09-29 14:24] LABS: POC Glucose,Bedside 83 (70-110)
[2021-09-29 16:36] LABS: Hematocrit 28.9 % (37.0-47.0)
[2021-09-29 16:59] LABS: Hemoglobin 9.4 g/dL (12.2-16.2)
--- NOTE | 2021-09-29 18:15 | PC.NURSE ---
contacted MD regarding hypoglycemia and hypothermia. states to increase fluids to 100ml per hour. no other orders at this time
--- NOTE | 2021-09-29 18:47 | PC.NURSE ---
spoke with [facility] regarding possible transfer. Still no bed available @ this time. Gave them report about pt condition
--- NOTE | 2021-09-29 18:48 | PC.NURSE ---
contacted MD regarding fsbs 39 and 59
[2021-09-29 23:07] LABS: POC Glucose,Bedside 129 (70-110)
[2021-09-30] VITALS: BP 131/44; PULSE 76; PULSE 80; RESP 18; TEMP 35.9; O2SAT 97
[2021-09-30 01:22] LABS: POC Glucose,Bedside 103 (70-110)
[2021-09-30 01:22] LABS: POC Glucose,Bedside 59 (70-110)
--- NOTE | 2021-09-30 02:57 | PC.NURSE ---
Late entry - at 2206 pts FSBS was 55 and temp is 93.4. Dr. Dumont notified. Orders received for 1 amp of D50 IV. D50 given. Recheck FSBS was 129.
[2021-09-30 04:00] VITALS: BP 134/50; PULSE 85; PULSE 90; RESP 20; TEMP 36.7; O2SAT 95
[2021-09-30 05:01] VITALS: BMI 33.7
[2021-09-30 05:43] LABS: POC Glucose,Bedside 61 (70-110)
[2021-09-30 06:28] LABS: Alanine Aminotransferase 41 U/L (12-78); Albumin Level 2.8 g/dl (3.5-5.0); Alkaline Phosphatase 120 U/L (38-126); Anion Gap 8.6 mEq/L (5-15); Aspartate Amino Transferase 90 U/L (14-36); Bilirubin,Total 0.9 mg/dl (0.2-1.3); Blood Urea Nitrogen 44 mg/dl (7-17); Calcium 8.6 mg/dl (8.4-10.2); Carbon Dioxide 20 mmol/L (22.0-30.0); Chloride 120 mmol/L (98-107); Creatinine Clearance Estimated 44 mL/min (50-200); Estimated Glomerular Filt Rate 34 ml/min (>60); GFR (African American) 41 ML/MIN (>60); Globulin 2.9 g/dL (1.3-3.2); Glucose 51 mg/dl (74-100); INR 1.17 (0.9-1.1); Potassium 4.6 mmoL/L (3.5-5.1); Prothrombin Time 13.1 seconds (10.1-12.5); Sodium 144 mmol/L (136-145); Total Protein,Serum 5.7 g/dl (6.3-8.2)
[2021-09-30 06:38] LABS: Basophils % 0.3 % (0.1-2.0); Eosinophils # 0.2 K/mm3 (0.0-0.4); Eosinophils % 3.4 % (0.1-12.0); Hemoglobin 8.8 g/dL (12.2-16.2); Lymphocytes # 0.9 K/mm3 (0.7-4.5); Lymphocytes % 18.6 % (10-50); Mean Corpuscular HGB Conc 31.6 g/dL (31.8-35.4); Mean Corpuscular Hemoglobin 29.3 pg (27.0-31.2); Mean Corpuscular Volume 92.9 fl (81-99); Mean Platelet Volume 12.5 fl (7.4-10.4); Monocytes # 0.6 K/mm3 (0.1-1.0); Monocytes % 11.4 % (1.7-9.3); Neutrophils # 3.3 K/mm3 (1.8-7.8); Neutrophils % 66.3 % (37.0-80.0); Platelet Count 59 K/mm3 (142-424); Red Cell Distribution Width 18.6 % (11.5-17.5); White Blood Count 4.9 K/mm3 (4.8-10.8)
[2021-09-30 06:39] LABS: Hematocrit 27.9 % (37.0-47.0)
--- NOTE | 2021-09-30 06:53 | PC.NURSE ---
Lab glucose of 51. Pt will not eat or drink. Dr. gonzales notified. New orders received.
[2021-09-30 07:07] LABS: Ammonia 30 umol/L (9-30)
--- NOTE | 2021-09-30 07:39 | HMH.GSPN ---
Subjective Narrative: Per nursing, she has had no signs of ongoing significant blood loss. Progress Note: A&P (1) Hepatic encephalopathy Status: Acute (2) GI bleed Status: Acute (3) Anemia Status: Acute (4) Thrombocytopenia Status: Acute (5) Hypertension Status: Chronic (6) Type 2 diabetes mellitus Status: Chronic (7) COVID-19 virus infection Status: Acute (8) Hx of esophageal varices Status: Acute Assessment and plan: Continue current medical management She remains on a wait list for transfer to the [facility] in order to undergo endoscopic evaluation at a facility where treatment for varices is available Exam Vital signs and Labs for Last 24 Hours: Temp Pulse Resp BP Pulse Ox 98.1 F 85 20 134/50 L 95 09/30/21 04:00 09/30/21 04:00 09/30/21 04:00 09/30/21 04:00 09/30/21 04:00 Laboratory Results - last 24 hr 09/28/21 15:45: Blood Type O Positive, Antibody Screen Negative, Crossmatch (AHG) See Detail 09/29/21 06:40: Ammonia 50 H 09/29/21 06:40: WBC 4.5 L, RBC 2.33 L D, Hgb 7.0 L, Hct 22.1 L, MCV 95.0, MCH 30.0, MCHC 31.6 L, RDW 17.8 H, Plt Count 70 L D, MPV 13.8 H, Neut % (Auto) 73.5, Lymph % (Auto) 14.3, [place] % (Auto) 9.1, Eos % (Auto) 2.9, Baso % (Auto) 0.2, Neut # (Auto) 3.3, Lymph # (Auto) 0.6 L, [place] # (Auto) 0.4, Eos # (Auto) 0.1, Baso # (Auto) 0.0 09/29/21 06:44: POC Glucose 71 09/29/21 11:27: POC Glucose 198 H 09/29/21 14:17: POC Glucose 83 09/29/21 16:15: Hgb 9.4 L D, Hct 28.9 L 09/29/21 16:42: POC Glucose 59 L 09/29/21 17:54: POC Glucose 103 09/29/21 22:57: POC Glucose 129 H 09/30/21 05:21: POC Glucose 61 L 09/30/21 05:46: WBC 4.9, RBC 3.00 L D, Hgb 8.8 L, Hct 27.9 L, MCV 92.9, MCH 29.3, MCHC 31.6 L, RDW 18.6 H, Plt Count 59 L, MPV 12.5 H, Neut % (Auto) 66.3, Lymph % (Auto) 18.6, [place] % (Auto) 11.4 H, Eos % (Auto) 3.4, Baso % (Auto) 0.3, Neut # (Auto) 3.3, Lymph # (Auto) 0.9, [place] # (Auto) 0.6, Eos # (Auto) 0.2, Baso # (Auto) 0.0 09/30/21 05:46: PT 13.1 H, INR 1.17 H 09/30/21 05:46: Sodium 144, Potassium 4.6, Chloride 120 H, Carbon Dioxide 20 L, Anion Gap 8.6, BUN 44 H, Creatinine 1.50 H, Estimated Creat Clear 44, Estimated GFR 34 L, Est GFR ( Amer) 41 L, Glucose 51 L, Calcium 8.6, Total Bilirubin 0.9, AST 90 H, ALT 41, Alkaline Phosphatase 120, Total Protein 5.7 L, Albumin 2.8 L, Globulin 2.9, Albumin/Globulin Ratio 1.0 L 09/30/21 05:46: Ammonia 30 I & O for Last 24 hours: Intake & Output 09/27/21 09/28/21 09/29/21 09/30/21 11:59 11:59 11:59 11:59 Intake Total 825 / 825 1406 / 1406 Output Total 450 / 450 775 / 775 Balance 375 / 375 631 / 631 Weight 185 lb 7.986 oz 190 lb 12.8 oz - *Routine Cardiovascular Exam Absent: tachycardia
[2021-09-30 08:00] VITALS: BP 145/69; PULSE 95; RESP 18; TEMP 36.9; O2SAT 97
--- NOTE | 2021-09-30 08:34 | HMH.ACPN2 ---
<Nessa Hernandez - Last Filed: 09/30/21 08:34> Internal Medicine - PN: Subj *Date: 09/30/21 *Time: 08:34 Interval history: Patient is nonverbal. Information obtained from nursing. She is nonverbal with them as well and has no purposeful movements. She has not eaten since admission. Patient has been hypoglycemic and received D50 W IV. She has also been hypothermic which was corrected with the bear hugger Laboratory data this morning show white blood cell count of 4900 with a hemoglobin of 8.8 and hematocrit of 27.9. Blood chemistries show a BUN of 44 and creatinine of 1.5. Ammonia level is normal at 30 this morning. Exam Vital signs and Labs for Last 24 Hours: Temp Pulse Resp BP Pulse Ox 98.1 F 85 20 134/50 L 95 09/30/21 04:00 09/30/21 04:00 09/30/21 04:00 09/30/21 04:00 09/30/21 04:00 Laboratory Results - last 24 hr 09/28/21 15:45: Blood Type O Positive, Antibody Screen Negative, Crossmatch (AHG) See Detail 09/29/21 06:40: Ammonia 50 H 09/29/21 06:40: WBC 4.5 L, RBC 2.33 L D, Hgb 7.0 L, Hct 22.1 L, MCV 95.0, MCH 30.0, MCHC 31.6 L, RDW 17.8 H, Plt Count 70 L D, MPV 13.8 H, Neut % (Auto) 73.5, Lymph % (Auto) 14.3, [place] % (Auto) 9.1, Eos % (Auto) 2.9, Baso % (Auto) 0.2, Neut # (Auto) 3.3, Lymph # (Auto) 0.6 L, [place] # (Auto) 0.4, Eos # (Auto) 0.1, Baso # (Auto) 0.0 09/29/21 11:27: POC Glucose 198 H 09/29/21 14:17: POC Glucose 83 09/29/21 16:15: Hgb 9.4 L D, Hct 28.9 L 09/29/21 16:42: POC Glucose 59 L 09/29/21 17:54: POC Glucose 103 09/29/21 22:57: POC Glucose 129 H 09/30/21 05:21: POC Glucose 61 L 09/30/21 05:46: WBC 4.9, RBC 3.00 L D, Hgb 8.8 L, Hct 27.9 L, MCV 92.9, MCH 29.3, MCHC 31.6 L, RDW 18.6 H, Plt Count 59 L, MPV 12.5 H, Neut % (Auto) 66.3, Lymph % (Auto) 18.6, [place] % (Auto) 11.4 H, Eos % (Auto) 3.4, Baso % (Auto) 0.3, Neut # (Auto) 3.3, Lymph # (Auto) 0.9, [place] # (Auto) 0.6, Eos # (Auto) 0.2, Baso # (Auto) 0.0 09/30/21 05:46: PT 13.1 H, INR 1.17 H 09/30/21 05:46: Sodium 144, Potassium 4.6, Chloride 120 H, Carbon Dioxide 20 L, Anion Gap 8.6, BUN 44 H, Creatinine 1.50 H, Estimated Creat Clear 44, Estimated GFR 34 L, Est GFR ( Amer) 41 L, Glucose 51 L, Calcium 8.6, Total Bilirubin 0.9, AST 90 H, ALT 41, Alkaline Phosphatase 120, Total Protein 5.7 L, Albumin 2.8 L, Globulin 2.9, Albumin/Globulin Ratio 1.0 L 09/30/21 05:46: Ammonia 30 I & O for Last 24 hours: Intake & Output 09/27/21 09/28/21 09/29/21 09/30/21 11:59 11:59 11:59 11:59 Intake Total 825 / 825 1406 / 1406 Output Total 450 / 450 775 / 775 Balance 375 / 375 631 / 631 Weight 185 lb 7.986 oz 190 lb 12.8 oz - Constitutional no acute distress Comments: This not respond to verbal stimuli. - *Routine Respiratory Exam Present: CTA bilaterally (Anteriorly and posteriorly) - *Routine Cardiovascular Exam Present: RRR - *Routine Abdominal Exam Present: soft, obese Assessment and Plan (1) Hepatic encephalopathy Status: Acute Category: Medical Code(s): K72.90 - Hepatic failure, unspecified without coma (2) GI bleed Status: Acute Qualifiers: GI bleed type/associated pathology: unspecified gastrointestinal hemorrhage type Qualified Code(s): K92.2 - Gastrointestinal hemorrhage, unspecified Category: Medical Code(s): K92.2 - Gastrointestinal hemorrhage, unspecified (3) Anemia Status: Acute Qualifiers: Anemia type: unspecified type Qualified Code(s): D64.9 - Anemia, unspecified Category: Medical Code(s): D64.9 - Anemia, unspecified (4) Thrombocytopenia Status: Acute Category: Medical Code(s): D69.6 - Thrombocytopenia, unspecified (5) Hypertension Status: Chronic Category: Medical Code(s): I10 - Essential (primary) hypertension (6) Type 2 diabetes mellitus Status: Chronic Category: Medical Code(s): E11.9 - Type 2 diabetes mellitus without complications (7) COVID-19 virus infection Status: Acute Category: Medical Code(s): U07.1 - COVID-19 (8) Hx
[2021-09-30 08:39] LABS: POC Glucose,Bedside 120 (70-110)
--- NOTE | 2021-09-30 08:41 | CT_ITS ---
FINAL REPORT TECHNIQUE: Multiple axial CT sections were performed from the foramen magnum to the vertex. Coronal reformatted images were also obtained. Precontrast and postcontrast injection images were obtained. This study was performed with technique to keep radiation doses as low as reasonably achievable, (ALARA). Individualized dose reduction techniques using automated exposure control or adjustment of mA and/or kV according to the patient size were employed. CLINICAL HISTORY: AMS COMPARISON: 09/28/2021 FINDINGS: Exam is degraded by patient motion. There is mild atrophy and chronic small vessel ischemic change. The ventricles are normal in size. There is no evidence of hemorrhage. No masses are identified. No extra-axial fluid collection is seen. The sinuses demonstrate mild mucoperiosteal thickening of the ethmoid air cells. No osseous abnormality is seen on the bone window images. Postcontrast images demonstrate no abnormal enhancement. IMPRESSION: Exam degraded by patient motion. No acute intracranial abnormality. Mild atrophy and chronic small vessel ischemic change. Reviewed, Interpreted and Dictated by Anshu Diaz MD Transcribed by Deya Rodríguez Authenticated by Anshu Diaz MD on 09/30/2021 11:00:[address] [facility]
[2021-09-30 09:32] LABS: Influenza A, PCR Not Detected (NotDetected); Influenza B, PCR Not Detected (NotDetected)
[2021-09-30 10:36] LABS: Coronavirus 19, PCR Detected (NotDetected)
--- NOTE | 2021-09-30 10:55 | PC.NURSE ---
FS checked this am and it was 120.
[2021-09-30 11:24] VITALS: BMI 33.7
[2021-09-30 11:24] LABS: Thyroid Stimulating Hormone 1.73 uIU/mL (0.465-4.68)
[2021-09-30 12:00] VITALS: BP 158/69; PULSE 80; PULSE 90; RESP 18; TEMP 36.7; O2SAT 99
[2021-09-30 12:01] LABS: POC Glucose,Bedside 80 (70-110)
--- NOTE | 2021-09-30 13:27 | PC.NURSE ---
Pt's blood sugars have been 120 this shift, 80, and recently 69. Have also made Dr. Cali aware that [facility] called and wanted an update on pt's status. Dr. Cali given MIKEL Tomas number. Did also given an update to her this am as well. Dr. Cali did also order blood cx's and Linnea Sarah APRN ordered a repeat covid swab and it was positive.
[2021-09-30 16:00] VITALS: BP 155/81; PULSE 79; PULSE 83; RESP 18; TEMP 36.6; O2SAT 95
[2021-09-30 20:00] VITALS: BP 127/76; PULSE 76; PULSE 80; RESP 16; TEMP 36.3; O2SAT 95
--- NOTE | 2021-09-30 20:08 | PC.NURSE ---
Called and spoke w/ Earl at to attempt to give report at nurse Rafia, wasn't available and will call us back when able to take report on pt.
--- NOTE | 2021-09-30 21:32 | PC.NURSE ---
Addendum entered by Lola Valencia CNA 09/30/21 22:16: CORRECTION- PT WAS D/C VIA STRETCHER PER [facility] TO DIFFERENT FACILITY @ 2131 Original Note: PT WAS D/C VIA STRETCHER PER [facility] TO DIFFERENT @ 2131.
[2021-09-30 22:35] LABS: POC Glucose,Bedside 101 (70-110)
--- NOTE | 2021-09-30 23:14 | PC.NURSE ---
Rafia from [facility] given report on pt. [facility]'s ambulance notified. Spoke with pt's son, Lino and updated on status. Pt left floor at 2131 with [facility]'s ambulance.
--- NOTE | 2021-10-02 08:21 | HMH.DCSUM ---
General - General Admission date:: 09/28/21 <Earl Cali - 10/08/21 18:07> 09/28/21 <Aimee Soriano - 10/02/21 08:33> Discharge date: 09/30/21 <BoAimee - 10/02/21 08:33> HPI HPI: Ms. Pineda is a 76-year-old white female with a history of ELLIOTT/cirrhosis, type 2 diabetes mellitus, hypertension, and ASCVD. She has had previous admissions with hepatic encephalopathy and has followed closely with Dr. Chase over the past 5 years. She has also been referred to the liver transplant service. She is known to have portal hypertension, portal vein thrombosis and esophageal varices. History is obtained from the ER record as I have been unable to contact her family. According to the ER note, she was in her usual state of health on Thursday evening and then yesterday morning she was noted to be confused and was brought to the ER. Her ammonia level was elevated at 176 and she was found to be anemic with a hemoglobin of 5.5 and platelet count of 40,000. Stool was heme positive. No history of nausea, vomiting, or hematemesis. She was incidentally found to be Covid positive although no history of respiratory symptoms. CT scan of the head was unremarkable and chest x-ray shows no acute findings. O2 sats have been normal on room air. She was admitted with IV fluids and continued on her lactulose. She was also started on octreotide for empiric treatment of possible bleeding from her esophageal varices. She received 2 units of packed red cells overnight. Her post transfusion Hgb was 6.5. She is hemodynamically stable but remains confused. <BoAimee - 10/02/21 08:33> Hospital Course Hospital Course: The patient was started on IV fluids and lactulose. Her Xifaxan was resumed. She was empirically started on octreotide for possible variceal bleeding. She was given 2 units of packed red blood cells and her labs were monitored. was contacted for transfer from the ER, but no beds were available and she was on a waiting list. Surgery was consulted for GI bleeding in the absence of GI consultation at [facility]. Her Covid test was positive, but she was relatively asymptomatic. Her oxygen was 99% on room air and her chest x-ray in the ER showed nothing acute. She was seen in consultation by Dr. Gibbs who recommended continuing her current medications and deferring endoscopic evaluation to a tertiary care center. By 09/30/2021, the patient was no better. She was nonverbal and had no purposeful movements. She was not eating and has been hypoglycemic and received D50 IV. She had also been hypothermic and was placed on a Bear hugger. Her hemoglobin did improve to 8.8. Her ammonia level normalized. A repeat head CT was ordered as her mental status was not improving. The head CT showed no acute intracranial abnormality. The patient was able to be transferred to for further evaluation and treatment. <Aimee Soriano - 10/02/21 08:33> Objective Vital signs: Temp Pulse Resp BP Pulse Ox 97.4 F L 76 16 127/76 95 09/30/21 20:00 09/30/21 20:00 09/30/21 20:00 09/30/21 20:00 09/30/21 20:00 <Earl Cali - 10/08/21 18:07> Temp Pulse Resp BP Pulse Ox 97.4 F L 76 16 127/76 95 09/30/21 20:00 09/30/21 20:00 09/30/21 20:00 09/30/21 20:00 09/30/21 20:00 <Aimee Soriano - 10/02/21 08:33> DS: Diagnosis - Discharge Diagnosis (1) Hepatic encephalopathy Status: Acute (2) GI bleed Status: Acute (3) Anemia Status: Acute (4) Thrombocytopenia Status: Acute (5) Hypertension Status: Chronic (6) Type 2 diabetes mellitus Status: Chronic (7) COVID-19 virus infection Status: Acute (8) Hx of esophageal varices Status: Acute (9) Hypoglycemia Status: Acute (10) Hypothermia Status: Acute <Aimee Soriano - 10/02/21 08:21> (1) Hepatic encephalopathy Status: Acute (2) GI bleed Status: Acute
== END 2021-09-30 21:32 | disposition short-term general hospital (02) | DRG 441 ==
LOC: ER 13:06 → 2ND 18:20
PROVIDERS: Nurse Practitioner Family; Admitting Provider Family Medicine; Emergency Provider Emergency Medicine; PCP Family Medicine; Visit Provider Family Medicine
DX: K72.90 Hepatic failure, unspecified without coma (principal); U07.1 COVID-19; K92.2 Gastrointestinal hemorrhage, unspecified; K76.6 Portal hypertension; K74.60 Unspecified cirrhosis of liver; I10 Essential (primary) hypertension; I25.10 Atherosclerotic heart disease of native coronary artery without angina pectoris; E78.5 Hyperlipidemia, unspecified; J45.909 Unspecified asthma, uncomplicated; Z95.5 Presence of coronary angioplasty implant and graft; D64.9 Anemia, unspecified; D69.6 Thrombocytopenia, unspecified; Z79.4 Long term (current) use of insulin; E11.649 Type 2 diabetes mellitus with hypoglycemia without coma; R68.0 Hypothermia, not associated with low environmental temperature
CPT/HCPCS: 36415; 70450; 70470; 71045; 80053; 81001; 82140; 82272; 82962; 83605; 83690; 84443; 84484; 85014; 85018; 85025; 85610; 86850; 87040; 93005; 99285; C9803; G0328; J0696; J2354; P9016; P9034; Q9967; U0003; U0005